=== PATIENT | female | born 1950 | race Two or more races ===

== ENCOUNTER 2017-06-02 12:43 | Inpatient (IN) | payer MEDICAID, MEDICARE ==
[~2017-06-02] VITALS: Ht 152.4 cm; Wt 63.5 kg
[~2017-06-02 12:43] MED LIST: ASPIRIN EC81 MG ORAL; AZITHROMYCIN250 MG ORAL; BENAZEPRIL HCL10 MG ORAL; CALCIUM 500 +1 EAC7 PO; CODEINE-GUAIFE120 ML PO; GABAPENTIN100 MG ORAL; HYDROCHLOROTHIA25 MG ORAL; LOSARTAN POTASS25 M1 PO; METFORMIN HCL1000 M1 ORAL; MONTELUKAST SOD10 MG ORAL; NEURONTIN100 MG ORAL; NITROGLYCERIN0.4 MG SL; NITROSTAT0.4 M1 SL; NOVOLIN 70/305 UNIT1 SUBQ; OMEPRAZOLE40 M1 ORAL; PROAIR HFA8.5 GM INH; SYMBICORT 16010.2 G1 IH
[2017-06-02] MEDS ORDERED: Ketorolac 30mg Inj IV ONE (13:00)
[2017-06-02] MEDS ORDERED: LORazepam Inj 2mg/ml 1ml IV ONE (13:00)
[2017-06-02 13:10] VITALS: BP 136/68
--- NOTE | 2017-06-02 13:34 | Diagnostic Imaging Report ---
Indication: Dyspnea Comparison: 08/28/16 A single view chest radiograph was obtained. Findings: Reticular markings noted at the lung bases, unchanged from the last study. Heart size is normal. The bones are osteopenic. Impression: Suspected mild basilar atelectasis and/or scarring.
[2017-06-02 13:43] LABS: APPEARANCE,URINE SLIGHTLY CLOUDY; KETONES,URINE 2+ (NEGATIVE); LEUKOCYTE ESTERASE ,URINE 1+ (NEGATIVE); NITRITE,URINE NEGATIVE (NEGATIVE); PH,URINE 7 (4.5-8.0); PROTEIN,URINE 1+ (NEGATIVE); UROBILINOGEN,URINE 1 MG/DL (0.0-1.0)
[2017-06-02 13:48] LABS: BACTERIA,URINE FEW /HPF; MUCUS,URINE MODERATE /LPF (NONE/OCC); SQUAMOUS EPITHELIAL CELL,UR FEW /LPF (NONE/OCC)
[2017-06-02 13:49] LABS: ICTOTEST NEGATIVE
[2017-06-02 14:07] LABS: TROPONIN I < 0.30 ng/mL (<=0.30)
--- NOTE | 2017-06-02 14:07 | Emergency Room Report ---
History of Present Illness General Chief Complaint: General Complaint Source: Patient, Family Member, Medical Record (YOVANNY MENDOZA M.D.) Present Illness HPI 66-year-old female presents ED complaining of generalized bodyaches, cough, shortness of breath and abdominal pain. Also having diarrhea for the last 3 days. Patient appears very anxious. Daughter and at that states patient has a history of anxiety and takes Ativan. Patient recently returned from a trip to [place]. Patient states that she has a "lung problem". Denies fevers or chills. Denies chest pain. No other aggravating relieving factors. Denies any other associated symptom (YOVANNY MENDOZA M.D.) Allergies: Coded Allergies: MORPHINE (Unverified Allergy, Severe, HIVES, SWELLING OF FACE, RASH, ) Patient History Past Medical History: DM, HTN, asthma, psych hx Past Surgical History: none Pertinent Family History: none Social History: Denies: smoking, alcohol use, drug use Now: No Immunizations: UTD Reviewed Nursing Documentation: PMH: Agreed, PSxH: Agreed (YOVANNY MENDOZA M.D.) Nursing Documentation-PMH Past Medical History: No History, Except For Hx Hypertension: Yes Hx Asthma: Yes Hx Diabetes: Yes Hx Cancer: No Hx Gastrointestinal Problems: No Hx Neurological Problems: No (YOVANNY MENDOZA M.D.) Review of Systems All Other Systems: negative except mentioned in HPI (YOVANNY MENDOZA M.D.) Physical Exam Vital Signs Date Time Temp Pulse Resp B/P (MAP) Pulse Ox O2 Delivery O2 Flow Rate FiO2 06/02/17 12:48 98.1 78 33 99/70 100 Room Air Sp02 EP Interpretation: reviewed, normal General Appearance: no apparent distress, alert, GCS 15, non-toxic Head: normocephalic, atraumatic Eyes: bilateral eye normal inspection, bilateral eye PERRL ENT: hearing grossly normal, normal pharynx, no angioedema, normal voice Neck: full range of motion, supple/symm/no masses Respiratory: chest non-tender, crackles, speaking full sentences Cardiovascular #1: regular rate, rhythm, no edema Cardiovascular #2: 2+ carotid (R), 2+ carotid (L), 2+ radial (R), 2+ radial (L) , 2+ dorsalis pedis (R), 2+ dorsalis pedis (L) Gastrointestinal: normal bowel sounds, non tender, soft, non-distended, no guarding, no rebound Rectal: deferred Genitourinary: normal inspection, no CVA tenderness Musculoskeletal: back normal, gait/station normal, normal range of motion, non- tender Neurologic: alert, oriented x3, responsive, motor strength/tone normal, sensory intact, speech normal Psychiatric: judgement/insight normal, memory normal, mood/affect normal, no suicidal/homicidal ideation Reflexes: 3+ bicep (R), 3+ bicep (L), 3+ tricep (R), 3+ tricep (L), 3+ knee (R) , 3+ knee (L) Skin: normal color, no rash, warm/dry, well hydrated Lymphatic: no adenopathy (YOVANNY MENDOZA M.D.) Medical Decision Making Diagnostic Impression: Primary Impression: Bronchitis Additional Impressions: Lactic acid acidosis Hyperkalemia ER Course Patient was endorsed to me by Dr. Mendoza. Patient was noted to have elevated lactic acid level. The patient had some improvement after IV hydration. The patient had chest x-ray showed no acute changes. Patient was discussed with Dr. Blanco. See previous note for full history of present illness. The patient will be admitted to the hospital as [facility] was unable to arrange a timely transfer. The patient was subsequently discussed with Dr. killian for inpatient management due to elevated lactic acid level Labs Test 06/02/17 13:21 06/02/17 13:54 06/02/17 14:53 Urine Color Yellow Urine Appearance Slightly cloudy Urine pH 7 (4.5-8.0) Urine Specific [place] 1.015 (1.005-1.035) Urine Protein 1+ (NEGATIVE) Urine Glucose (UA) 3+ (NEGATIVE) Urine Ketones 2+ (NEGATIVE) Urine Occult Blood Negative (NEGATIVE) Urine Nitrite Negative (NEGATIVE) Urine Bilirubin 1+ (NEGATIVE) Urine Ictotest Negative Urine Urobilinogen 1 MG/DL (0.0-1.0) Urine Leukocyte Esterase 1+ (NEGATIVE) Urine RBC 2-4 /HPF (0 - 2) Urine WBC 2-4 /HPF (0 - 2) Urine Squamous Epithelial Cells Few /LPF (NONE/OCC) Urine Bacteria Few /HPF (NONE) Urine Mucus Moderate /LPF (NONE/OCC) Sodium Level 137 mEQ/L (135-145) Potassium Level 5.8 mEQ/L (3.4-4.9) Chloride Level 96 mEQ/L (98-107) Carbon Dioxide Level 21 mEQ/L (20-30) Anion Gap 20 (5-15) Blood Urea Nitrogen 9 mg/dL (7-23) Creatinine 0.8 mg/dL (0.5-0.9) Estimat Glomerular Filtration Rate > 60 mL/min (>60) Glucose Level 241 mg/dL (74-106) Calcium Level 10.3 mg/dL (8.6-10.2) Total Bilirubin 0.3 mg/dL (0.0-1.2) Aspartate Amino Transf (AST/SGOT) 31 U/L (5-40) Alanine Aminotransferase (ALT/SGPT) 16 U/L (3-33) Alkaline Phosphatase 73 U/L (35-104) Total Creatine Kinase 74 U/L (26-140) Creatine Kinase MB < 1.5 ng/mL (< 3.8) Creatine Kinase MB Relative Index 2.0 Troponin I < 0.30 ng/mL (<=0.30) Pro-B-Type Natriuretic Peptide 161 pg/mL (0-125) Total Protein 7.6 g/dL (6.6-8.7) Albumin 4.7 g/dL (3.5-5.2) Globulin 2.9 g/dL Albumin/Globulin Ratio 1.6 (1.0-2.7) White Blood Count 9.5 K/UL (4.8-10.8) Red Blood Count 4.77 M/UL (4.20-5.40) Hemoglobin 13.9 G/DL (12.0-16.0) Hematocrit 40.0 % (37.0-47.0) Mean Corpuscular Volume 84 FL (80-99) Mean Corpuscular Hemoglobin 29.1 PG (27.0-31.0) Mean Corpuscular Hemoglobin Concent 34.7 G/DL (32.0-36.0) Red Cell Distribution Width 11.3 % (11.6-14.8) Platelet Count 233 K/UL (150-450) Mean Platelet Volume 8.2 FL (6.5-10.1) Neutrophils (%) (Auto) 57.5 % (45.0-75.0) Lymphocytes (%) (Auto) 32.5 % (20.0-45.0) Monocytes (%) (Auto) 7.6 % (1.0-10.0) Eosinophils (%) (Auto) 1.6 % (0.0-3.0) Basophils (%) (Auto) 0.8 % (0.0-2.0) Lactic Acid Level 3.80 mmol/L (0.66-2.22) (Buddy Ray) EKG Diagnostic Results Rate: normal Rhythm: NSR ST Segments: no acute changes ASA given to the pt in ED: No (YOVANNY MENDOZA M.D.) Rhythm Strip Diag. Results EP Interpretation: yes Rhythm: NSR, no PVC's, no ectopy (YOVANNY MENDOZA M.D.) Chest X-Ray Diagnostic Results Chest X-Ray Diagnostic Results : Chest X-Ray Ordered: Yes # of Views/Limited/Complete: 1 View Indication: Shortness of Breath EP Interpretation: Yes Interpretation: no pneumothorax, no acute cardiopulmonary disease, other - bilateral atelectasis Impression: Other - atelectasis Electronically Signed by: Electronically signed by Yovanny Mendoza MD (YOVANNY MENDOZA M.D.) Last Vital Signs Date Time Temp Pulse Resp B/P (MAP) Pulse Ox O2 Delivery O2 Flow Rate FiO2 06/02/17 12:48 98.1 78 33 99/70 100 Room Air (YOVANNY MENDOZA M.D.) Status: improved (Buddy Ray) Disposition: HOME, SELF-CARE Condition: Stable Referrals: NON PHYSICIAN (PCP) YOVANNY MENDOZA M.D. Jun 02, 2017 14:07 Buddy Ray Jun 02, 2017 15:56
[2017-06-02 14:09] LABS: ALANINE AMINOTRANSFERASE 16 U/L (3-33); ALBUMIN/GLOBULIN RATIO 1.6 (1.0-2.7); ANION GAP 20 (5-15); ASPARTATE AMINO TRANSFERASE 31 U/L (5-40); CALCIUM 10.3 mg/dL (8.6-10.2); CARBON DIOXIDE 21 mEQ/L (20-30); CHLORIDE 96 mEQ/L (98-107); CREATININE 0.8 mg/dL (0.5-0.9); GLOMERULAR FILTRATION RATE > 60 mL/min (>60); HEMOLYSIS 117; POTASSIUM 5.8 mEQ/L (3.4-4.9); SODIUM 137 mEQ/L (135-145); TOTAL PROTEIN 7.6 g/dL (6.6-8.7)
[2017-06-02 14:13] LABS: REFLEX LACTIC ACID YES OR NO YES
[2017-06-02] MEDS ORDERED: Azithromycin 500 MG in NS 275 ML IV ONE (14:15)
[2017-06-02] MEDS ORDERED: cefTRIAXone 1 GM in NS 55 ML IVPB ONE (14:15)
[2017-06-02 14:20] LABS: CKMB < 1.5 ng/mL (< 3.8)
[2017-06-02 14:25] LABS: BASOPHILS % (AUTO) 0.8 % (0.0-2.0); EOSINOPHILS % (AUTO) 1.6 % (0.0-3.0); LYMPHOCYTES % (AUTO) 32.5 % (20.0-45.0); MEAN CORPUSCULAR HEMOGLOBIN 29.1 PG (27.0-31.0); MEAN CORPUSCULAR HGB CONC 34.7 G/DL (32.0-36.0); MEAN CORPUSCULAR VOLUME 84 FL (80-99); MEAN PLATELET VOLUME 8.2 FL (6.5-10.1); MONOCYTES % (AUTO) 7.6 % (1.0-10.0); NEUTROPHILS % (AUTO) 57.5 % (45.0-75.0); PLATELET COUNT 233 K/UL (150-450); RED BLOOD COUNT 4.77 M/UL (4.20-5.40); RED CELL DISTRIBUTION WIDTH 11.3 % (11.6-14.8); WHITE BLOOD COUNT 9.5 K/UL (4.8-10.8)
[2017-06-02] MEDS ORDERED: DONEPEZIL HCL10 MG ORAL (14:55)
[2017-06-02] MEDS ORDERED: AMITRIPTYLINE100 MG ORAL (14:55)
[2017-06-02] MEDS ORDERED: MELOXICAM7.5 MG PO (14:56)
[2017-06-02] MEDS ORDERED: MONTELUKAST SOD10 MG ORAL (14:59)
[2017-06-02] MEDS ORDERED: LATANOPROST2.5 ML BOTH EYES (14:59)
[2017-06-02] MEDS ORDERED: OYSTERCAL-D 501 EACH PO (14:59)
[2017-06-02] MEDS ORDERED: PAZEO2.5 ML OP (14:59)
[2017-06-02] MEDS ORDERED: ATORVASTATIN CA20 MG ORAL (14:59)
[2017-06-02 15:10] VITALS: BP 178/81
[2017-06-02] MEDS ORDERED: Azithromycin 500mg Inj IV ONE ×2 (15:30→15:42)
[2017-06-02] MEDS ORDERED: D5 1/2NS 1,000 ML IV SCH (16:15)
[2017-06-02 17:10] VITALS: BP 122/74
[2017-06-02] MEDS ORDERED: Acetaminophen 500mg (ES) tab ORAL ONE (17:30)
[2017-06-02] MEDS ORDERED: LORazepam Inj 2mg/ml 1ml IV PRN (18:15)
[2017-06-02] MEDS ORDERED: Albuterol/Ipratropium 3ml neb HHN PRN (18:15)
[2017-06-02] MEDS ORDERED: Miralax 17gm pkt ORAL PRN (18:15)
[2017-06-02 19:51] VITALS: BP 115/74
[2017-06-02] MEDS ORDERED: Cefepime HCl 2 GM in D5W 110 ML IV SCH (21:30)
[2017-06-02] MEDS: Heparin 5000 units/ml inj SUBQ SCH (22:21)
[2017-06-02] MEDS: NovoLOG Insulin Flexpen SUBQ SCH (22:34)
[2017-06-02] MEDS: Vancomycin 1 GM in D5W 275 ML IVPB SCH (23:55)
[2017-06-03 00:22] VITALS: BP 103/56
[2017-06-03 04:25] VITALS: BP 107/58
[2017-06-03] MEDS: NovoLOG Insulin Flexpen SUBQ SCH ×4 (06:12→21:44)
[2017-06-03] MEDS ORDERED: Norco 5mg/325mg tab ORAL PRN (07:15)
[2017-06-03 08:08] VITALS: BP 121/76
[2017-06-03 08:22] LABS: BASOPHILS % (AUTO) 1.5 % (0.0-2.0); EOSINOPHILS % (AUTO) 4.7 % (0.0-3.0); LYMPHOCYTES % (AUTO) 36.9 % (20.0-45.0); MEAN CORPUSCULAR HEMOGLOBIN 27.7 PG (27.0-31.0); MEAN CORPUSCULAR HGB CONC 31.3 G/DL (32.0-36.0); MEAN CORPUSCULAR VOLUME 88 FL (80-99); MEAN PLATELET VOLUME 7.2 FL (6.5-10.1); MONOCYTES % (AUTO) 9.3 % (1.0-10.0); NEUTROPHILS % (AUTO) 47.7 % (45.0-75.0); PLATELET COUNT 177 K/UL (150-450); RED BLOOD COUNT 4.25 M/UL (4.20-5.40); RED CELL DISTRIBUTION WIDTH 11.6 % (11.6-14.8); WHITE BLOOD COUNT 6.4 K/UL (4.8-10.8)
[2017-06-03 08:46] LABS: ANION GAP 12 (5-15); CALCIUM 9.1 mg/dL (8.6-10.2); CARBON DIOXIDE 21 mEQ/L (20-30); CHLORIDE 111 mEQ/L (98-107); CREATININE 0.6 mg/dL (0.5-0.9); GLOMERULAR FILTRATION RATE > 60 mL/min (>60); HEMOLYSIS 4; PHOSPHORUS 3.8 mg/dL (2.5-4.8); POTASSIUM 4.6 mEQ/L (3.4-4.9); SODIUM 144 mEQ/L (135-145)
[2017-06-03] MEDS: Heparin 5000 units/ml inj SUBQ SCH ×2 (09:11→21:46)
[2017-06-03] MEDS: Vancomycin 1 GM in D5W 275 ML IVPB SCH (09:18)
--- NOTE | 2017-06-03 09:38 | Consultation ---
History of Present Illness General Date patient seen: Jun 03, 2017 Time patient seen: 09:37 Chief Complaint: General Complaint Present Illness HPI 66 y/o F with hx of DM2, Asthma/bronchitis, Anxiety presents to ED on 06/02 with generalized body aches, productive cough of white phlegm, SOB, abd pain and diarrhea onset about 4 days prior to admission. Patient complains of chronic cough and abd pain. Diarrhea resolved, now contispated in the for the last 4 days. Denied f/c, n/v, dysuria, WATTS, rash. OF note, patient returned recently from [place]. Afebrile, no leukocytosis, CXR with basilar atelectasis. Flu neg. Started on IV Vanco and Cefpime Allergies: Coded Allergies: MORPHINE (Unverified Allergy, Severe, HIVES, SWELLING OF FACE, RASH, ) AZITHROMYCIN (Verified Allergy, Unknown, Burning, 06/02/17) Medication History Scheduled Amitriptyline HCl (Amitriptyline HCl), 10 MG ORAL BEDTIME, (Reported) Aspirin Ec* (Aspirin Ec*), 81 MG ORAL DAILY, (Reported) Atorvastatin Calcium* (Atorvastatin Calcium*), 20 MG ORAL BEDTIME, (Reported) Donepezil Hcl* (Donepezil Hcl*), 10 MG ORAL BEDTIME, (Reported) Gabapentin* (Neurontin*), 100 MG ORAL THREE TIMES A DAY, (Reported) Hydrochlorothiazide* (Hydrochlorothiazide*), 25 MG ORAL DAILY, (Reported) Insulin Human Isophan/Regular (Humulin 70-30 Vial), 40 UNITS SUBQ BEFORE BREAKFAST, (Reported) Insulin Human Isophan/Regular (Humulin 70-30 Vial), 25 UNITS SUBQ BEFORE DINNER, (Reported) Latanoprost* (Xalatan*), 1 DROP BOTH EYES BEDTIME, (Reported) Meloxicam* (Meloxicam*), 7.5 MG PO DAILY, (Reported) Metformin Hcl* (Metformin Hcl*), 1,000 MG ORAL BID, (Reported) Montelukast Sodium* (Montelukast Sodium*), 10 MG ORAL DAILY, (Reported) Omeprazole (Omeprazole), 40 MG ORAL DAILY, (Reported) Miscellaneous Medications Insulin Human Isophan/Regular (Humulin 70-30 Vial), 100 UNITS SUBQ, (Reported) Nitroglycerin (Nitrostat), 0.4 MG SL, (Reported) Olopatadine HCl (Pazeo), 2.5 ML OP, (Reported) Discontinued Medications Albuterol Sulfate* (Proair Hfa*), 2 PUFFS INH Q6H, (Reported) Discontinued Reason: Pt stopped taking med Azithromycin* (Zithromax*), 250 MG ORAL DAILY Discontinued Reason: Pt stopped taking med Benazepril Hcl* (Benazepril Hcl*), 5 MG ORAL DAILY, (Reported) Discontinued Reason: Pt stopped taking med Budesonide/Formoterol Fumarate (Symbicort 160-4.5 Mcg Inhaler), 1 PUFF IH, ( Reported) Discontinued Reason: Pt stopped taking med Calcium Carbonate/Vitamin D3 (Calcium 500 + Vit D3 400 Tab), 1 EACH PO, ( Reported) Discontinued Reason: Pt stopped taking med Calcium Carbonate/Vitamin D3 (Oystercal-D 500 mg-400 Unit Tb), 1 EACH PO DAILY, (Reported) Discontinued Reason: Pt stopped taking med Gabapentin* (Gabapentin*), 100 MG ORAL DAILY, (Reported) Discontinued Reason: Pt stopped taking med Guaifenesin/Codeine Phosphate (Codeine-Guaifen 10-100 mg/5 ml), 5 ML PO TID, ( Reported) Discontinued Reason: Pt stopped taking med Losartan Potassium (Losartan Potassium), 25 MG PO, (Reported) Discontinued Reason: Pt stopped taking med Patient History Healthcare decision maker Resuscitation status Full Code Advanced Directive on File Patient History Narrative PMHx as above Family hx- non pertientn from ID SHx: Denies: smoking, alcohol use, drug use Past Medical/Surgical History Past Medical/Surgical History: (1) ACS (acute coronary syndrome) (2) ACS (acute coronary syndrome) (3) Asthma (4) Hyperglycemia (5) Diabetes mellitus (6) Lactic acid acidosis (7) Bronchitis (8) Pneumonia (9) Hyperkalemia Review of Systems ROS Narrative As per hPI,ohterwise negative. Physical Exam Physical Exam Narrative General Appearance: no apparent distress, alert, non-toxic HEENT: Head: normocephalic, atraumatic, PERRL, no oral lesions Neck: full range of motion, supple/symm/no masses Respiratory: chest non-tender, crackles, Cardiovascular : regular rate, rhythm, no edema (L) Gastrointestinal: normal bowel sounds, non tender, soft, non-distended, no guarding, no rebound Musculoskeletal: back normal, gait/station normal, normal range of motion, non- tender Neurologic: alert, oriented x3, responsive, motor strength/tone normal, sensory intact, speech normal Psychiatric: judgement/insight normal, memory normal, mood/affect normal, no suicidal/homicidal ideation Skin: normal color, no rash, warm/dry, well hydrated Last 24 Hour Vital Signs Date Time Temp Pulse Resp B/P (MAP) Pulse Ox O2 Delivery O2 Flow Rate FiO2 06/03/17 08:08 98.1 71 18 121/76 100 Room Air 06/03/17 04:25 98.0 60 20 107/58 98 Room Air 06/03/17 04:00 64 06/03/17 00:22 97.2 82 20 103/56 96 06/03/17 00:00 78 06/02/17 19:57 98.0 74 30 115/74 100 Room Air 06/02/17 19:51 98.0 74 30 115/74 100 Room Air 06/02/17 17:10 70 30 122/74 100 Room Air 06/02/17 15:10 61 30 178/81 100 Room Air 06/02/17 13:10 98.0 76 20 136/68 100 Room Air 06/02/17 12:48 98.1 78 33 99/70 100 Room Air Intake and Output 06/03/17 06/04/17 19:00 07:00 Intake Total 250 ml Balance 250 ml Intake Oral 250 ml Laboratory Tests Test 06/02/17 13:21 06/02/17 13:54 06/02/17 14:53 06/03/17 07:35 Urine Color Yellow Urine Appearance Slightly cloudy Urine pH 7 (4.5-8.0) Urine Specific [place] 1.015 (1.005-1.035) Urine Protein 1+ (NEGATIVE) H Urine Glucose (UA) 3+ (NEGATIVE) H Urine Ketones 2+ (NEGATIVE) H Urine Occult Blood Negative (NEGATIVE) Urine Nitrite Negative (NEGATIVE) Urine Bilirubin 1+ (NEGATIVE) H Urine Ictotest Negative Urine Urobilinogen 1 MG/DL (0.0-1.0) H Urine Leukocyte Esterase 1+ (NEGATIVE) H Urine RBC 2-4 /HPF (0 - 2) H Urine WBC 2-4 /HPF (0 - 2) Urine Squamous Epithelial Cells Few /LPF (NONE/OCC) Urine Bacteria Few /HPF (NONE) Urine Mucus Moderate /LPF (NONE/OCC) H Sodium Level 137 mEQ/L (135-145) 144 mEQ/L (135-145) Potassium Level 5.8 mEQ/L (3.4-4.9) H 4.6 mEQ/L (3.4-4.9) Chloride Level 96 mEQ/L (98-107) L 111 mEQ/L (98-107) H Carbon Dioxide Level 21 mEQ/L (20-30) 21 mEQ/L (20-30) Anion Gap 20 (5-15) H 12 (5-15) Blood Urea Nitrogen 9 mg/dL (7-23) 7 mg/dL (7-23) Creatinine 0.8 mg/dL (0.5-0.9) 0.6 mg/dL (0.5-0.9) Estimat Glomerular Filtration Rate > 60 mL/min (>60) > 60 mL/min (>60) Glucose Level 241 mg/dL (74-106) H 212 mg/dL (74-106) H Lactic Acid Level 6.10 mmol/L (0.66-2.22) H 3.80 mmol/L (0.66-2.22) H Calcium Level 10.3 mg/dL (8.6-10.2) H 9.1 mg/dL (8.6-10.2) Total Bilirubin 0.3 mg/dL (0.0-1.2) Aspartate Amino Transf (AST/SGOT) 31 U/L (5-40) Alanine Aminotransferase (ALT/SGPT) 16 U/L (3-33) Alkaline Phosphatase 73 U/L (35-104) Total Creatine Kinase 74 U/L (26-140) Creatine Kinase MB < 1.5 ng/mL (< 3.8) Creatine Kinase MB Relative Index 2.0 Troponin I < 0.30 ng/mL (<=0.30) Pro-B-Type Natriuretic Peptide 161 pg/mL (0-125) H Total Protein 7.6 g/dL (6.6-8.7) Albumin 4.7 g/dL (3.5-5.2) 3.4 g/dL (3.5-5.2) L Globulin 2.9 g/dL Albumin/Globulin Ratio 1.6 (1.0-2.7) White Blood Count 9.5 K/UL (4.8-10.8) 6.4 K/UL (4.8-10.8) Red Blood Count 4.77 M/UL (4.20-5.40) 4.25 M/UL (4.20-5.40) Hemoglobin 13.9 G/DL (12.0-16.0) 11.8 G/DL (12.0-16.0) L Hematocrit 40.0 % (37.0-47.0) 37.5 % (37.0-47.0) Mean Corpuscular Volume 84 FL (80-99) 88 FL (80-99) Mean Corpuscular Hemoglobin 29.1 PG (27.0-31.0) 27.7 PG (27.0-31.0) Mean Corpuscular Hemoglobin Concent 34.7 G/DL (32.0-36.0) 31.3 G/DL (32.0-36.0) L Red Cell Distribution Width 11.3 % (11.6-14.8) L 11.6 % (11.6-14.8) Platelet Count 233 K/UL (150-450) 177 K/UL (150-450) Mean Platelet Volume 8.2 FL (6.5-10.1) 7.2 FL (6.5-10.1) Neutrophils (%) (Auto) 57.5 % (45.0-75.0) 47.7 % (45.0-75.0) Lymphocytes (%) (Auto) 32.5 % (20.0-45.0) 36.9 % (20.0-45.0) Monocytes (%) (Auto) 7.6 % (1.0-10.0) 9.3 % (1.0-10.0) Eosinophils (%) (Auto) 1.6 % (0.0-3.0) 4.7 % (0.0-3.0) H Basophils (%) (Auto) 0.8 % (0.0-2.0) 1.5 % (0.0-2.0) Phosphorus Level 3.8 mg/dL (2.5-4.8) Microbiology Date/Time Source Procedure Growth Status 06/03/17 01:38 Nasal Nares Influenza Types A,B Antigen (JOHAN) - Final Complete Height (Feet): 5 Height (Inches): 0.00 Weight (Pounds): 140 Medications Current Medications Medications (Trade) Dose Ordered Sig/Chasidy Route PRN Reason Start Time Stop Time Status Last Admin Dose Admin Acetaminophen (Tylenol) 650 mg Q4H PRN ORAL FEVER 06/02/17 18:15 07/02/17 18:14 06/03/17 00:25 Acetaminophen/ Hydrocodone Bitart ([place] 5/325) 1 tab Q6H PRN ORAL For Pain 06/03/17 07:15 06/10/17 07:14 UNV Albuterol/ Ipratropium (DuoNeb 0.5-3(2.5)mg/3ml) 3 ml Q4H PRN HHN Shortness of Breath 06/02/17 18:15 06/07/17 18:14 Amitriptyline HCl (Elavil) 10 mg BEDTIME ORAL 06/02/17 21:00 07/02/17 20:59 06/02/17 22:05 Cefepime HCl 2 gm/ Dextrose 110 ml @ 220 mls/hr Q24H IV 06/02/17 21:30 06/09/17 21:29 06/02/17 22:35 Dextrose (Dextrose 50%) STAT PRN IV Hypoglycemia 06/02/17 18:15 07/02/17 18:14 Gabapentin (Neurontin) 100 mg THREE TIMES A DAY ORAL 06/03/17 21:00 07/03/17 20:59 Heparin Sodium (Porcine) (Heparin 5000 units/ml) 5,000 units EVERY 12 HOURS SUBQ 06/02/17 21:00 07/02/17 20:59 06/03/17 09:11 Insulin Aspart (NovoLOG) BEFORE MEALS AND HS SUBQ 06/02/17 21:00 07/02/17 20:59 06/03/17 06:12 Lorazepam (Ativan 2mg/ml 1ml) 2 mg Q2H PRN IV For Anxiety 06/02/17 18:15 06/09/17 18:14 Ondansetron HCl (Zofran) 4 mg Q6H PRN IVP Nausea & Vomiting 06/02/17 18:15 07/02/17 18:14 Polyethylene Glycol (Miralax) 17 gm DAILYPRN PRN ORAL Constipation 06/02/17 18:15 07/02/17 18:14 Sodium Chloride 1,000 ml @ 50 mls/hr Q20H IV 06/02/17 21:00 07/02/17 20:59 06/02/17 22:35 Vancomycin HCl (Vanco rx to dose) 1 ea DAILY PRN MISC Per rx protocol 06/02/17 20:45 07/02/17 20:44 Vancomycin HCl 1 gm/Dextrose 275 ml @ 183.3 mls/ hr Q12HR IVPB 06/02/17 22:30 06/07/17 22:29 06/03/17 09:18 Assessment/Plan Assessment/Plan Abx: IV Vanco/Cefepime 06/02- Assesment: SOB/Cough- suspect bronchitis- possibly viral infection exacerbated symptoms -CXR: Suspected mild basilar atelectasis and/or scarring. Diarrhea, now constipated Lactic acidosis, improving Afebrile, no leukocytosis Dm2 Asthma/bronchitis Plan: -Transition above abx to Doxycycline 100mg PO bid for 4 more days in the setting of bronchitis (allergic to azithromycin) -KUB given abd pain and constipation -low treshold for CT abd/p if worsening abd pain and lactic acidosis -f/u cx -monitor CCBC/BMP, temperatures Thank you for this consultation. WIll continue to follow along with you. Discussed with Karo Shaw M.D. Jun 03, 2017 09:38
[2017-06-03 11:52] VITALS: BP 133/67
[2017-06-03] MEDS ORDERED: Promethazine Plain 6.25mg/5ml ORAL PRN (12:00)
--- NOTE | 2017-06-03 13:18 | History and Physical ---
History of Present Illness General Date patient seen: Jun 02, 2017 Reason for Hospitalization: General Complaint Present Illness HPI 66-year-old female with hx of Asthma. DM presented [facility] complaining of generalized cough, shortness of breath and abdominal pain. Also having diarrhea for the last 3 days. Patient appears very anxious. Denies fevers or chills. Denies chest pain. No other aggravating relieving factors. Denies any other associated symptom. she is admitted to telemetry for further evaluation. Allergies: Coded Allergies: MORPHINE (Unverified Allergy, Severe, HIVES, SWELLING OF FACE, RASH, ) AZITHROMYCIN (Verified Allergy, Unknown, Burning, 06/02/17) Medication History Scheduled Amitriptyline HCl (Amitriptyline HCl), 10 MG ORAL BEDTIME, (Reported) Aspirin Ec* (Aspirin Ec*), 81 MG ORAL DAILY, (Reported) Atorvastatin Calcium* (Atorvastatin Calcium*), 20 MG ORAL BEDTIME, (Reported) Donepezil Hcl* (Donepezil Hcl*), 10 MG ORAL BEDTIME, (Reported) Gabapentin* (Neurontin*), 100 MG ORAL THREE TIMES A DAY, (Reported) Hydrochlorothiazide* (Hydrochlorothiazide*), 25 MG ORAL DAILY, (Reported) Insulin Human Isophan/Regular (Humulin 70-30 Vial), 40 UNITS SUBQ BEFORE BREAKFAST, (Reported) Insulin Human Isophan/Regular (Humulin 70-30 Vial), 25 UNITS SUBQ BEFORE DINNER, (Reported) Latanoprost* (Xalatan*), 1 DROP BOTH EYES BEDTIME, (Reported) Meloxicam* (Meloxicam*), 7.5 MG PO DAILY, (Reported) Metformin Hcl* (Metformin Hcl*), 1,000 MG ORAL BID, (Reported) Montelukast Sodium* (Montelukast Sodium*), 10 MG ORAL DAILY, (Reported) Omeprazole (Omeprazole), 40 MG ORAL DAILY, (Reported) Miscellaneous Medications Insulin Human Isophan/Regular (Humulin 70-30 Vial), 100 UNITS SUBQ, (Reported) Nitroglycerin (Nitrostat), 0.4 MG SL, (Reported) Olopatadine HCl (Pazeo), 2.5 ML OP, (Reported) Discontinued Medications Albuterol Sulfate* (Proair Hfa*), 2 PUFFS INH Q6H, (Reported) Discontinued Reason: Pt stopped taking med Azithromycin* (Zithromax*), 250 MG ORAL DAILY Discontinued Reason: Pt stopped taking med Benazepril Hcl* (Benazepril Hcl*), 5 MG ORAL DAILY, (Reported) Discontinued Reason: Pt stopped taking med Budesonide/Formoterol Fumarate (Symbicort 160-4.5 Mcg Inhaler), 1 PUFF IH, ( Reported) Discontinued Reason: Pt stopped taking med Calcium Carbonate/Vitamin D3 (Calcium 500 + Vit D3 400 Tab), 1 EACH PO, ( Reported) Discontinued Reason: Pt stopped taking med Calcium Carbonate/Vitamin D3 (Oystercal-D 500 mg-400 Unit Tb), 1 EACH PO DAILY, (Reported) Discontinued Reason: Pt stopped taking med Gabapentin* (Gabapentin*), 100 MG ORAL DAILY, (Reported) Discontinued Reason: Pt stopped taking med Guaifenesin/Codeine Phosphate (Codeine-Guaifen 10-100 mg/5 ml), 5 ML PO TID, ( Reported) Discontinued Reason: Pt stopped taking med Losartan Potassium (Losartan Potassium), 25 MG PO, (Reported) Discontinued Reason: Pt stopped taking med Patient History Healthcare decision maker Resuscitation status Full Code Advanced Directive on File Past Medical/Surgical History Past Medical/Surgical History: (1) Asthma (2) Diabetes mellitus Review of Systems All Other Systems: negative except mentioned in HPI Physical Exam General Appearance: WD/WN Lines, tubes and drains: peripheral HEENT: normocephalic, atraumatic Neck: non-tender, normal alignment Respiratory/Chest: chest wall non-tender, lungs clear Breasts: no masses Cardiovascular/Chest: normal peripheral pulses, normal rate, regular rhythm Abdomen: normal bowel sounds, non tender Genitourinary/Rectal: normal genital exam Extremities: normal range of motion Skin Exam: normal pigmentation Lymphatic: anterior cervical Last 24 Hour Vital Signs Date Time Temp Pulse Resp B/P (MAP) Pulse Ox O2 Delivery O2 Flow Rate FiO2 06/03/17 11:52 98.3 67 18 133/67 100 Room Air 06/03/17 08:25 69 18 Room Air 06/03/17 08:08 98.1 71 18 121/76 100 Room Air 06/03/17 08:00 71 06/03/17 04:25 98.0 60 20 107/58 98 Room Air 06/03/17 04:00 64 06/03/17 00:22 97.2 82 20 103/56 96 06/03/17 00:00 78 06/02/17 19:57 98.0 74 30 115/74 100 Room Air 06/02/17 19:51 98.0 74 30 115/74 100 Room Air 06/02/17 17:10 70 30 122/74 100 Room Air 06/02/17 15:10 61 30 178/81 100 Room Air Intake and Output 06/03/17 06/04/17 19:00 07:00 Intake Total 250 ml Output Total 300 ml Balance -50 ml Intake Oral 250 ml Output Urine Total 300 ml # Bowel Movements 1 Laboratory Tests Test 06/02/17 13:21 06/02/17 13:54 06/02/17 14:53 06/03/17 07:35 Urine Color Yellow Urine Appearance Slightly cloudy Urine pH 7 (4.5-8.0) Urine Specific [place] 1.015 (1.005-1.035) Urine Protein 1+ (NEGATIVE) H Urine Glucose (UA) 3+ (NEGATIVE) H Urine Ketones 2+ (NEGATIVE) H Urine Occult Blood Negative (NEGATIVE) Urine Nitrite Negative (NEGATIVE) Urine Bilirubin 1+ (NEGATIVE) H Urine Ictotest Negative Urine Urobilinogen 1 MG/DL (0.0-1.0) H Urine Leukocyte Esterase 1+ (NEGATIVE) H Urine RBC 2-4 /HPF (0 - 2) H Urine WBC 2-4 /HPF (0 - 2) Urine Squamous Epithelial Cells Few /LPF (NONE/OCC) Urine Bacteria Few /HPF (NONE) Urine Mucus Moderate /LPF (NONE/OCC) H Sodium Level 137 mEQ/L (135-145) 144 mEQ/L (135-145) Potassium Level 5.8 mEQ/L (3.4-4.9) H 4.6 mEQ/L (3.4-4.9) Chloride Level 96 mEQ/L (98-107) L 111 mEQ/L (98-107) H Carbon Dioxide Level 21 mEQ/L (20-30) 21 mEQ/L (20-30) Anion Gap 20 (5-15) H 12 (5-15) Blood Urea Nitrogen 9 mg/dL (7-23) 7 mg/dL (7-23) Creatinine 0.8 mg/dL (0.5-0.9) 0.6 mg/dL (0.5-0.9) Estimat Glomerular Filtration Rate > 60 mL/min (>60) > 60 mL/min (>60) Glucose Level 241 mg/dL (74-106) H 212 mg/dL (74-106) H Lactic Acid Level 6.10 mmol/L (0.66-2.22) H 3.80 mmol/L (0.66-2.22) H Calcium Level 10.3 mg/dL (8.6-10.2) H 9.1 mg/dL (8.6-10.2) Total Bilirubin 0.3 mg/dL (0.0-1.2) Aspartate Amino Transf (AST/SGOT) 31 U/L (5-40) Alanine Aminotransferase (ALT/SGPT) 16 U/L (3-33) Alkaline Phosphatase 73 U/L (35-104) Total Creatine Kinase 74 U/L (26-140) Creatine Kinase MB < 1.5 ng/mL (< 3.8) Creatine Kinase MB Relative Index 2.0 Troponin I < 0.30 ng/mL (<=0.30) Pro-B-Type Natriuretic Peptide 161 pg/mL (0-125) H Total Protein 7.6 g/dL (6.6-8.7) Albumin 4.7 g/dL (3.5-5.2) 3.4 g/dL (3.5-5.2) L Globulin 2.9 g/dL Albumin/Globulin Ratio 1.6 (1.0-2.7) White Blood Count 9.5 K/UL (4.8-10.8) 6.4 K/UL (4.8-10.8) Red Blood Count 4.77 M/UL (4.20-5.40) 4.25 M/UL (4.20-5.40) Hemoglobin 13.9 G/DL (12.0-16.0) 11.8 G/DL (12.0-16.0) L Hematocrit 40.0 % (37.0-47.0) 37.5 % (37.0-47.0) Mean Corpuscular Volume 84 FL (80-99) 88 FL (80-99) Mean Corpuscular Hemoglobin 29.1 PG (27.0-31.0) 27.7 PG (27.0-31.0) Mean Corpuscular Hemoglobin Concent 34.7 G/DL (32.0-36.0) 31.3 G/DL (32.0-36.0) L Red Cell Distribution Width 11.3 % (11.6-14.8) L 11.6 % (11.6-14.8) Platelet Count 233 K/UL (150-450) 177 K/UL (150-450) Mean Platelet Volume 8.2 FL (6.5-10.1) 7.2 FL (6.5-10.1) Neutrophils (%) (Auto) 57.5 % (45.0-75.0) 47.7 % (45.0-75.0) Lymphocytes (%) (Auto) 32.5 % (20.0-45.0) 36.9 % (20.0-45.0) Monocytes (%) (Auto) 7.6 % (1.0-10.0) 9.3 % (1.0-10.0) Eosinophils (%) (Auto) 1.6 % (0.0-3.0) 4.7 % (0.0-3.0) H Basophils (%) (Auto) 0.8 % (0.0-2.0) 1.5 % (0.0-2.0) Phosphorus Level 3.8 mg/dL (2.5-4.8) Test 06/03/17 10:10 Lactic Acid Level 1.30 mmol/L (0.66-2.22) Microbiology Date/Time Source Procedure Growth Status 06/03/17 01:38 Nasal Nares Influenza Types A,B Antigen (JOHAN) - Final Complete Height (Feet): 5 Height (Inches): 0.00 Weight (Pounds): 140 Medications Current Medications Medications (Trade) Dose Ordered Sig/Chasidy Route PRN Reason Start Time Stop Time Status Last Admin Dose Admin Acetaminophen (Tylenol) 650 mg Q4H PRN ORAL FEVER 06/02/17 18:15 07/02/17 18:14 06/03/17 00:25 Albuterol/ Ipratropium (DuoNeb 0.5-3(2.5)mg/3ml) 3 ml Q4H PRN HHN Shortness of Breath 06/02/17 18:15 06/07/17 18:14 Amitriptyline HCl (Elavil) 10 mg BEDTIME ORAL 06/02/17 21:00 07/02/17 20:59 06/02/17 22:05 Dextrose (Dextrose 50%) STAT PRN IV Hypoglycemia 06/02/17 18:15 07/02/17 18:14 Gabapentin (Neurontin) 100 mg THREE TIMES A DAY ORAL 06/03/17 21:00 07/03/17 20:59 Heparin Sodium (Porcine) (Heparin 5000 units/ml) 5,000 units EVERY 12 HOURS SUBQ 06/02/17 21:00 07/02/17 20:59 06/03/17 09:11 Insulin Aspart (NovoLOG) BEFORE MEALS AND HS SUBQ 06/02/17 21:00 07/02/17 20:59 06/03/17 11:30 Lorazepam (Ativan 2mg/ml 1ml) 2 mg Q2H PRN IV For Anxiety 06/02/17 18:15 06/09/17 18:14 Ondansetron HCl (Zofran) 4 mg Q6H PRN IVP Nausea & Vomiting 06/02/17 18:15 07/02/17 18:14 Polyethylene Glycol (Miralax) 17 gm DAILYPRN PRN ORAL Constipation 06/02/17 18:15 07/02/17 18:14 06/03/17 13:06 Promethazine HCl (Phenergan Plain) 6.25 mg Q6H PRN ORAL For Cough 06/03/17 12:00 07/03/17 11:59 Sodium Chloride 1,000 ml @ 50 mls/hr Q20H IV 06/02/17 21:00 07/02/17 20:59 06/02/17 22:35 Assessment/Plan Problem List: (1) Purulent bronchitis ICD Codes: J41.1 - Mucopurulent chronic bronchitis SNOMED: 37488805 (2) Asthma ICD Codes: J45.909 - Asthma SNOMED: 001286212 (3) History of coronary artery stent placement ICD Codes: Z95.5 - History of coronary artery stent placement SNOMED: 413435330 (4) Diabetes mellitus ICD Codes: E11.9 - Diabetes mellitus SNOMED: 97370712 Assessment/Plan respiratory treatment check sputum antitussives symptomatic treatment IV abx ZARRABI,MIRALI Jun 03, 2017 13:18
--- NOTE | 2017-06-03 13:31 | Pulmonology Progress Note ---
Assessment/Plan Problems: (1) Purulent bronchitis (2) Asthma (3) History of coronary artery stent placement (4) Diabetes mellitus Assessment/Plan respiratory treatment Iv abx check echo check sputum Subjective ROS Limited/Unobtainable: No Constitutional: Reports: no symptoms HEENT: Repors: no symptoms Respiratory: Reports: no symptoms Allergies: Coded Allergies: MORPHINE (Unverified Allergy, Severe, HIVES, SWELLING OF FACE, RASH, ) AZITHROMYCIN (Verified Allergy, Unknown, Burning, 06/02/17) Objective Last 24 Hour Vital Signs Date Time Temp Pulse Resp B/P (MAP) Pulse Ox O2 Delivery O2 Flow Rate FiO2 06/03/17 11:52 98.3 67 18 133/67 100 Room Air 06/03/17 08:25 69 18 Room Air 06/03/17 08:08 98.1 71 18 121/76 100 Room Air 06/03/17 08:00 71 06/03/17 04:25 98.0 60 20 107/58 98 Room Air 06/03/17 04:00 64 06/03/17 00:22 97.2 82 20 103/56 96 06/03/17 00:00 78 06/02/17 19:57 98.0 74 30 115/74 100 Room Air 06/02/17 19:51 98.0 74 30 115/74 100 Room Air 06/02/17 17:10 70 30 122/74 100 Room Air 06/02/17 15:10 61 30 178/81 100 Room Air Intake and Output 06/03/17 06/04/17 19:00 07:00 Intake Total 250 ml Output Total 300 ml Balance -50 ml Intake Oral 250 ml Output Urine Total 300 ml # Bowel Movements 1 General Appearance: WD/WN HEENT: normocephalic Respiratory/Chest: chest wall non-tender, lungs clear Cardiovascular: normal peripheral pulses, normal rate Abdomen: normal bowel sounds, soft, non tender Genitourinary: normal external genitalia Extremities: no cyanosis Skin: no rash Microbiology Date/Time Source Procedure Growth Status 06/03/17 01:38 Nasal Nares Influenza Types A,B Antigen (JOHAN) - Final Complete Laboratory Tests 06/02/17 13:21: Urine Color Yellow, Urine Appearance Slightly cloudy, Urine pH 7, Urine Specific [place] 1.015, Urine Protein 1+H, Urine Glucose (UA) 3+H, Urine Ketones 2+H, Urine Occult Blood Negative, Urine Nitrite Negative, Urine Bilirubin 1+H, Urine Ictotest Negative, Urine Urobilinogen 1H, Urine Leukocyte Esterase 1+H, Urine RBC 2-4H, Urine WBC 2-4, Urine Squamous Epithelial Cells Few , Urine Bacteria Few, Urine Mucus ModerateH, Sodium Level 137, Potassium Level 5.8H, Chloride Level 96L, Carbon Dioxide Level 21, Anion Gap 20H, Blood Urea Nitrogen 9, Creatinine 0.8, Estimat Glomerular Filtration Rate > 60, Glucose Level 241H, Lactic Acid Level 6.10H, Calcium Level 10.3H, Total Bilirubin 0.3, Aspartate Amino Transf (AST/SGOT) 31, Alanine Aminotransferase (ALT/SGPT) 16, Alkaline Phosphatase 73, Total Creatine Kinase 74, Creatine Kinase MB < 1.5, Creatine Kinase MB Relative Index 2.0, Troponin I < 0.30, Pro-B-Type Natriuretic Peptide 161H, Total Protein 7.6, Albumin 4.7, Globulin 2.9, Albumin/ Globulin Ratio 1.6 06/02/17 13:54: White Blood Count 9.5, Red Blood Count 4.77, Hemoglobin 13.9, Hematocrit 40.0, Mean Corpuscular Volume 84, Mean Corpuscular Hemoglobin 29.1, Mean Corpuscular Hemoglobin Concent 34.7, Red Cell Distribution Width 11.3L, Platelet Count 233, Mean Platelet Volume 8.2, Neutrophils (%) (Auto) 57.5, Lymphocytes (%) (Auto) 32.5, Monocytes (%) (Auto) 7.6, Eosinophils (%) (Auto) 1.6, Basophils (%) (Auto ) 0.8 06/02/17 14:53: Lactic Acid Level 3.80H 06/03/17 07:35: Sodium Level 144, Potassium Level 4.6, Chloride Level 111H, Carbon Dioxide Level 21, Anion Gap 12, Blood Urea Nitrogen 7, Creatinine 0.6, Estimat Glomerular Filtration Rate > 60, Glucose Level 212H, Calcium Level 9.1, Albumin 3.4L, White Blood Count 6.4, Red Blood Count 4.25, Hemoglobin 11.8L, Hematocrit 37.5, Mean Corpuscular Volume 88, Mean Corpuscular Hemoglobin 27.7, Mean Corpuscular Hemoglobin Concent 31.3L, Red Cell Distribution Width 11.6, Platelet Count 177, Mean Platelet Volume 7.2, Neutrophils (%) (Auto) 47.7, Lymphocytes (%) (Auto) 36.9, Monocytes (%) (Auto) 9.3, Eosinophils (%) (Auto) 4.7H, Basophils (%) (Auto) 1.5, Phosphorus Level 3.8 06/03/17 10:10: Lactic Acid Level 1.30 Current Medications Medications (Trade) Dose Ordered Sig/Chasidy Route PRN Reason Start Time Stop Time Status Last Admin Dose Admin Acetaminophen (Tylenol) 650 mg Q4H PRN ORAL FEVER 06/02/17 18:15 07/02/17 18:14 06/03/17 00:25 Albuterol/ Ipratropium (DuoNeb 0.5-3(2.5)mg/3ml) 3 ml Q4H PRN HHN Shortness of Breath 06/02/17 18:15 06/07/17 18:14 Amitriptyline HCl (Elavil) 10 mg BEDTIME ORAL 06/02/17 21:00 07/02/17 20:59 06/02/17 22:05 Dextrose (Dextrose 50%) STAT PRN IV Hypoglycemia 06/02/17 18:15 07/02/17 18:14 Gabapentin (Neurontin) 100 mg THREE TIMES A DAY ORAL 06/03/17 21:00 07/03/17 20:59 Heparin Sodium (Porcine) (Heparin 5000 units/ml) 5,000 units EVERY 12 HOURS SUBQ 06/02/17 21:00 07/02/17 20:59 06/03/17 09:11 Insulin Aspart (NovoLOG) BEFORE MEALS AND HS SUBQ 06/02/17 21:00 07/02/17 20:59 06/03/17 11:30 Lorazepam (Ativan 2mg/ml 1ml) 2 mg Q2H PRN IV For Anxiety 06/02/17 18:15 06/09/17 18:14 Ondansetron HCl (Zofran) 4 mg Q6H PRN IVP Nausea & Vomiting 06/02/17 18:15 07/02/17 18:14 Polyethylene Glycol (Miralax) 17 gm DAILYPRN PRN ORAL Constipation 06/02/17 18:15 11/3/17 18:14 06/03/17 13:06 Promethazine HCl (Phenergan Plain) 6.25 mg Q6H PRN ORAL For Cough 06/03/17 12:00 07/03/17 11:59 Sodium Chloride 1,000 ml @ 50 mls/hr Q20H IV 06/02/17 21:00 07/02/17 20:59 06/02/17 22:35 ROBIN LESLIE Jun 03, 2017 13:31
--- NOTE | 2017-06-03 14:09 | Diagnostic Imaging Report ---
Indication: Abdominal pain Comparison: None Single view of the abdomen obtained Findings: Bowel gas pattern is nonspecific. No mass, ectopic calcifications, or abnormal gas collections are identified. The bones are osteopenic. Impression: No acute findings
[2017-06-03 15:51] VITALS: BP 147/77
--- NOTE | 2017-06-03 20:18 | Cardiology Progress Note ---
Assessment/Plan Assessment/Plan ekg neg trop 1 set neg will reorder more sts adn fu on echo ordered Objective Last 24 Hour Vital Signs Date Time Temp Pulse Resp B/P (MAP) Pulse Ox O2 Delivery O2 Flow Rate FiO2 06/03/17 19:39 66 16 Room Air 21 06/03/17 17:20 98.4 06/03/17 16:00 64 06/03/17 15:51 98.4 68 18 147/77 97 Room Air 06/03/17 12:00 76 06/03/17 11:52 98.3 67 18 133/67 100 Room Air 06/03/17 08:25 69 18 Room Air 06/03/17 08:08 98.1 71 18 121/76 100 Room Air 06/03/17 08:00 71 06/03/17 04:25 98.0 60 20 107/58 98 Room Air 06/03/17 04:00 64 06/03/17 00:22 97.2 82 20 103/56 96 06/03/17 00:00 78 Intake and Output 06/03/17 06/04/17 19:00 07:00 Intake Total 1340 ml Output Total 1250 ml Balance 90 ml Intake Oral 740 ml IV Total 600 ml Output Urine Total 1250 ml # Bowel Movements 1 Laboratory Tests Test 06/03/17 07:35 06/03/17 10:10 White Blood Count 6.4 K/UL (4.8-10.8) Red Blood Count 4.25 M/UL (4.20-5.40) Hemoglobin 11.8 G/DL (12.0-16.0) L Hematocrit 37.5 % (37.0-47.0) Mean Corpuscular Volume 88 FL (80-99) Mean Corpuscular Hemoglobin 27.7 PG (27.0-31.0) Mean Corpuscular Hemoglobin Concent 31.3 G/DL (32.0-36.0) L Red Cell Distribution Width 11.6 % (11.6-14.8) Platelet Count 177 K/UL (150-450) Mean Platelet Volume 7.2 FL (6.5-10.1) Neutrophils (%) (Auto) 47.7 % (45.0-75.0) Lymphocytes (%) (Auto) 36.9 % (20.0-45.0) Monocytes (%) (Auto) 9.3 % (1.0-10.0) Eosinophils (%) (Auto) 4.7 % (0.0-3.0) H Basophils (%) (Auto) 1.5 % (0.0-2.0) Sodium Level 144 mEQ/L (135-145) Potassium Level 4.6 mEQ/L (3.4-4.9) Chloride Level 111 mEQ/L (98-107) H Carbon Dioxide Level 21 mEQ/L (20-30) Anion Gap 12 (5-15) Blood Urea Nitrogen 7 mg/dL (7-23) Creatinine 0.6 mg/dL (0.5-0.9) Estimat Glomerular Filtration Rate > 60 mL/min (>60) Glucose Level 212 mg/dL (74-106) H Calcium Level 9.1 mg/dL (8.6-10.2) Phosphorus Level 3.8 mg/dL (2.5-4.8) Albumin 3.4 g/dL (3.5-5.2) L Lactic Acid Level 1.30 mmol/L (0.66-2.22) Microbiology Date/Time Source Procedure Growth Status 06/03/17 01:38 Nasal Nares Influenza Types A,B Antigen (JOHAN) - Final Complete CHUYITA NEGRON Jun 03, 2017 20:18
[2017-06-03 20:46] VITALS: BP 134/69
[2017-06-04 00:48] VITALS: BP 108/55
[2017-06-04 04:45] VITALS: BP 96/77
[2017-06-04] MEDS: NovoLOG Insulin Flexpen SUBQ SCH ×3 (06:25→17:20)
[2017-06-04 08:41] VITALS: BP 112/64
[2017-06-04 08:58] LABS: TROPONIN I < 0.30 ng/mL (<=0.30)
[2017-06-04] MEDS: Heparin 5000 units/ml inj SUBQ SCH (09:05)
[2017-06-04 11:56] VITALS: BP 130/73
[2017-06-04 15:34] VITALS: BP 105/63
--- NOTE | 2017-06-04 15:35 | Pulmonology Progress Note ---
Assessment/Plan Problems: (1) Purulent bronchitis (2) Asthma (3) History of coronary artery stent placement (4) Diabetes mellitus Assessment/Plan respiratory treatment improving asymptoamtic echo reviewed check sputum Subjective ROS Limited/Unobtainable: No HEENT: Repors: no symptoms Respiratory: Reports: no symptoms Gastrointestinal/Abdominal: Reports: no symptoms Genitourinary: Reports: no symptoms Neurologic: Reports: no symptoms Allergies: Coded Allergies: MORPHINE (Unverified Allergy, Severe, HIVES, SWELLING OF FACE, RASH, ) AZITHROMYCIN (Verified Allergy, Unknown, Burning, 06/02/17) Objective Last 24 Hour Vital Signs Date Time Temp Pulse Resp B/P (MAP) Pulse Ox O2 Delivery O2 Flow Rate FiO2 06/04/17 13:19 98.2 06/04/17 12:00 62 06/04/17 11:56 98.2 64 18 130/73 99 Room Air 06/04/17 11:00 73 20 Room Air 21 06/04/17 08:41 97.5 66 18 112/64 98 Room Air 06/04/17 08:00 56 06/04/17 04:45 97.7 63 16 96/77 96 63 06/04/17 04:00 60 06/04/17 00:48 97.9 68 12 108/55 96 06/04/17 00:00 67 06/03/17 20:46 97.7 22 134/69 98 Room Air 06/03/17 20:00 66 06/03/17 19:39 66 16 Room Air 21 06/03/17 16:00 64 06/03/17 15:51 98.4 68 18 147/77 97 Room Air Intake and Output 06/04/17 06/05/17 19:00 07:00 Intake Total 600 ml Output Total 950 ml Balance -350 ml Intake Oral 600 ml Output Urine Total 950 ml General Appearance: WD/WN HEENT: normocephalic, atraumatic Respiratory/Chest: chest wall non-tender, lungs clear Breasts: no masses Cardiovascular: normal peripheral pulses Abdomen: soft, non tender, no organomegaly Genitourinary: normal external genitalia Skin: no rash Microbiology Date/Time Source Procedure Growth Status 06/02/17 13:21 Blood Blood Culture - Preliminary NO GROWTH AFTER 24 HOURS Resulted 06/02/17 13:05 Blood Blood Culture - Preliminary NO GROWTH AFTER 24 HOURS Resulted 06/03/17 01:38 Nasal Nares Influenza Types A,B Antigen (JOHAN) - Final Complete Laboratory Tests 06/04/17 07:40: Troponin I < 0.30 Current Medications Medications (Trade) Dose Ordered Sig/Chasidy Route PRN Reason Start Time Stop Time Status Last Admin Dose Admin Acetaminophen (Tylenol) 650 mg Q4H PRN ORAL FEVER 06/02/17 18:15 07/02/17 18:14 06/04/17 12:20 Albuterol/ Ipratropium (DuoNeb 0.5-3(2.5)mg/3ml) 3 ml Q4H PRN HHN Shortness of Breath 06/02/17 18:15 06/07/17 18:14 Amitriptyline HCl (Elavil) 10 mg BEDTIME ORAL 06/02/17 21:00 07/02/17 20:59 06/03/17 21:59 Dextrose (Dextrose 50%) STAT PRN IV Hypoglycemia 06/02/17 18:15 07/02/17 18:14 Doxycycline Monohydrate (Vibramycin) 100 mg EVERY 12 HOURS ORAL 06/03/17 14:00 06/10/17 13:59 06/04/17 09:04 Gabapentin (Neurontin) 100 mg THREE TIMES A DAY ORAL 06/03/17 21:00 07/03/17 20:59 06/04/17 13:28 Heparin Sodium (Porcine) (Heparin 5000 units/ml) 5,000 units EVERY 12 HOURS SUBQ 06/02/17 21:00 07/02/17 20:59 06/04/17 09:05 Insulin Aspart (NovoLOG) BEFORE MEALS AND HS SUBQ 06/02/17 21:00 07/02/17 20:59 06/04/17 12:14 Lorazepam (Ativan 2mg/ml 1ml) 2 mg Q2H PRN IV For Anxiety 06/02/17 18:15 06/09/17 18:14 Ondansetron HCl (Zofran) 4 mg Q6H PRN IVP Nausea & Vomiting 06/02/17 18:15 07/02/17 18:14 Polyethylene Glycol (Miralax) 17 gm DAILYPRN PRN ORAL Constipation 06/02/17 18:15 07/02/17 18:14 06/03/17 13:06 Promethazine HCl (Phenergan Plain) 6.25 mg Q6H PRN ORAL For Cough 06/03/17 12:00 07/03/17 11:59 Sodium Chloride 1,000 ml @ 50 mls/hr Q20H IV 06/02/17 21:00 07/02/17 20:59 06/04/17 13:29 ROBIN LESLIE Jun 04, 2017 15:35
[2017-06-04] MEDS ORDERED: 1/2 NS 1000ml IV ONE (18:29)
[2017-06-04] MEDS ORDERED: NS 275ml ONE (18:29)
[2017-06-04] MEDS ORDERED: Tubing IV Secondary IV ONE (18:29)
--- NOTE | 2017-06-04 18:47 | Infectious Diseases Prog Note ---
Assessment/Plan Assessment/Plan Abx: IV Vanco/Cefepime 06/02-06/03 Doxycycline 06/03- Assesment: SOB/Cough- suspect bronchitis- possibly viral infection exacerbated symptoms -CXR: Suspected mild basilar atelectasis and/or scarring. -Flu neg Diarrhea, now constipated -KUB: No acute findings Lactic acidosis, improving Afebrile, no leukocytosis Dm2 Asthma/bronchitis Plan: -Ok to discharge home on Doxycycline 100mg PO bid (abx 11/01) in the setting of bronchitis (allergic to azithromycin) -f/u final cx Thank you for this consultation. WIll continue to follow along with you. Subjective Allergies: Coded Allergies: MORPHINE (Unverified Allergy, Severe, HIVES, SWELLING OF FACE, RASH, ) AZITHROMYCIN (Verified Allergy, Unknown, Burning, 06/02/17) Subjective afebrile VSS at for discharge today Objective Vital Signs Last 24 Hour Vital Signs Date Time Temp Pulse Resp B/P (MAP) Pulse Ox O2 Delivery O2 Flow Rate FiO2 06/04/17 16:00 69 06/04/17 15:34 96.8 71 18 105/63 96 Room Air 06/04/17 13:19 98.2 06/04/17 12:00 62 06/04/17 11:56 98.2 64 18 130/73 99 Room Air 06/04/17 11:00 73 20 Room Air 21 06/04/17 08:41 97.5 66 18 112/64 98 Room Air 06/04/17 08:00 56 06/04/17 04:45 97.7 63 16 96/77 96 63 06/04/17 04:00 60 06/04/17 00:48 97.9 68 12 108/55 96 06/04/17 00:00 67 06/03/17 20:46 97.7 22 134/69 98 Room Air 06/03/17 20:00 66 06/03/17 19:39 66 16 Room Air 21 Height (Feet): 5 Height (Inches): 0.00 Weight (Pounds): 140 Objective not done as already discharged Microbiology Date/Time Source Procedure Growth Status 06/02/17 13:21 Blood Blood Culture - Preliminary NO GROWTH AFTER 24 HOURS Resulted 06/02/17 13:05 Blood Blood Culture - Preliminary NO GROWTH AFTER 24 HOURS Resulted 06/03/17 01:38 Nasal Nares Influenza Types A,B Antigen (JOHAN) - Final Complete Laboratory Tests Test 06/04/17 07:40 Troponin I < 0.30 ng/mL (<=0.30) Karo Laws M.D. Jun 04, 2017 18:47
--- NOTE | 2017-06-07 08:30 | Cardiology Report ---
APPROVED REPORT EXAM: Two-dimensional and M-mode echocardiogram with Doppler and color Doppler. INDICATION Chest Pain M-Mode DIMENSIONS IVSd1.5 (0.7-1.1cm)Left Atrium (MM)4.0 (1.6-4.0cm) LVDd4.7 (3.5-5.6cm)Aortic Root2.9 (2.0-3.7cm) PWd1.6 (0.7-1.1cm)Aortic Cusp Exc.1.6 (1.5-2.0cm) LVDs3.4 (2.5-4.0cm) PWs2.2 cm Normal left ventricular chamber size, systolic function and wall motion. Left ventricular ejection fraction estimated to be 65 %. Borderline mild left ventricular hypertrophy by 2-D. Anterior Echo-free space, may be due to pericardial fat or effusion. All other cardiac chamber sizes are within normal limits. Focal aortic valve sclerosis with adequate cusp excursion. Thickened mitral valve leaflets with normal excursion. Mitral annulus and aortic root calcification. Pulmonic valve not well visualized. Normal tricuspid valve structure. IVC at normal size with physiologic collapse. A color flow and spectral Doppler study was performed and revealed: Trace mitral regurgitation. suggest mildly reduced left ventricular relaxation c/w mild diastolic dysfunction. Trace tricuspid regurgitation. Tricuspid systolic velocities suggests peak right ventricular systolic pressure of 28 mmHg.
--- NOTE | 2017-06-07 13:13 | Discharge Summary ---
Discharge Summary Hospital Course Date of Admission Jun 02, 2017 at 16:35 Date of Discharge Jun 04, 2017 at 18:30 Admitting Diagnosis PNEUMONIA,SEPSIS HPI Amirah Nassar is a 66 year old female who was admitted on Jun 02, 2017 at 16:35 for Pneumonia, Sepsis Hospital Course dc summary #[id number] Discharge Medications Continued Medications: Donepezil Hcl* (Donepezil Hcl*) 10 Mg Tablet 10 MG ORAL BEDTIME, TAB Gabapentin* (Neurontin*) 100 Mg Capsule 100 MG ORAL THREE TIMES A DAY, #15 CAP 0 Refills Hydrochlorothiazide* (Hydrochlorothiazide*) 25 Mg Tablet 25 MG ORAL DAILY, TAB Insulin Human Isophan/Regular (Humulin 70-30 Vial) 5 Units Vial 40 UNITS SUBQ BEFORE BREAKFAST, VIAL Metformin Hcl* (Metformin Hcl*) 1,000 Mg Tablet 1000 MG ORAL BID, TAB Olopatadine HCl (Pazeo) 2.5 Ml Drops 2.5 ML OP, ML Omeprazole (Omeprazole) 40 Mg Capsule.dr 40 MG ORAL DAILY, CAP Discharge Discharge Disposition Patient was discharged to Home (01) Discharge Diagnoses: Discharge Instructions Discharge Instructions Special Instructions I have been assigned to complete a D/C Summary on this account. I was not involved in the patient management Lydia Landa NP ([facility]) Jun 07, 2017 13:13
--- NOTE | 2017-06-08 04:30 | Discharge Summary 2 SIG ---
DATE OF ADMISSION: 06/02/2017 DATE OF DISCHARGE: 06/04/2017 REASON FOR ADMISSION: 66-year-old female presented to emergency room with complaint of generalized weakness, body aches, cough, shortness of breath, and abdominal pain as well as diarrhea for the last three days. The patient was very anxious. Workup in the emergency room revealed no fever, no leukocytosis. Lactic acid -6.1. Chest x-ray revealed no acute cardiopulmonary pathology, but showed bilateral atelectasis. Hemoglobin and hematocrit were stable. Electrolytes were stable. Troponin was negative. EKG showed sinus rhythm. Potassium -5.8. The patient was admitted for further management. ADMITTING DIAGNOSES: 1. Purulent bronchitis. 2. Asthma. 3. Lactic acidosis. 4. Hyperkalemia. 5. Diabetes. 6. History of coronary artery stent. HOSPITAL COURSE: The patient was admitted. Infectious Disease consult was requested. The patient was on empiric antibiotics. As mentioned above, chest x-ray revealed no acute cardiopulmonary pathology, but showed bilateral atelectasis. Supplemental oxygen provided as needed to keep saturation above 92%. Pulmonary toilet was provided. The patient was on empiric antibiotic. Sputum culture was ordered, but was not collected. Antitussives were provided as needed. Echocardiogram revealed preserved ejection fraction of 65%, right ventricular systolic pressure of 28. Blood cultures were negative. Influenza screen was negative. Rail Grinder followed. Diarrhea resolved. KUB showed no acute findings. Hyperkalemia was treated, and potassium was stable afterwards. Lactic acid next day -1.3. Repeated troponin negative. Blood sugar was managed with sliding scale of insulin. The patient was stable for discharge. FINAL DIAGNOSES: 1. Purulent bronchitis. 2. Asthma. 3. Lactic acidosis, improved. 4. Hyperkalemia, resolved. 5. Diabetes mellitus. 6. History of coronary stent. 7. Diarrhea, resolved. DISCHARGE MEDICATIONS: See medication reconciliation list. DISCHARGE INSTRUCTIONS: The patient was discharged home. Follow up with the primary medical doctor. Sam Sandoval M.D. I have been assigned to dictate discharge summary on this account and I was not involved in the patient's management. Lydia Landa N.P. ([facility]) DR: GILBERT JOB#: [id number] CC: JAISON
--- NOTE | 2017-06-10 23:14 | Cardiology Report ---
APPROVED REPORT EKG Measurement Heart [id number] VA 150P21 [id number] Normal sinus rhythm Normal ECG
--- NOTE | 2017-06-10 23:20 | Cardiology Report ---
APPROVED REPORT EKG Measurement Heart [id number] DE 152P46 [id number] Normal sinus rhythm Normal ECG
== END 2017-06-04 18:30 | disposition home or self-care (01) | DRG 140 ==
LOC: EMR 13:22 → 2E 16:35 → EDBEDREQ 16:41
DX: J41.1 Mucopurulent chronic bronchitis (principal); E87.2 Acidosis; E11.9 Type 2 diabetes mellitus without complications; J45.909 Unspecified asthma, uncomplicated; K59.00 Constipation, unspecified; E87.5 Hyperkalemia; J98.11 Atelectasis; R19.7 Diarrhea, unspecified; Z95.5 Presence of coronary angioplasty implant and graft; Z79.82 Long term (current) use of aspirin; Z79.4 Long term (current) use of insulin
CPT/HCPCS: 36415; 71010; 74000; 80053; 80069; 81003; 82550; 82553; 82962; 83605; 83880; 84484; 85025; 86710; 87040; 93005; 93306; 94664; 99285; J1815

== ENCOUNTER 2017-12-03 19:02 | Emergency (ER) | payer MEDICARE, MEDICAID ==
[~2017-12-03] VITALS: Ht 154.9 cm; Wt 72.6 kg
[~2017-12-03 19:02] MED LIST changes: +AMITRIPTYLINE100 MG ORAL; +ATORVASTATIN CA20 MG ORAL; +DONEPEZIL HCL10 MG ORAL; +LATANOPROST2.5 ML BOTH EYES; +MELOXICAM7.5 MG PO; +OYSTERCAL-D 501 EACH PO; +PAZEO2.5 ML OP
[2017-12-03] MEDS ORDERED: OYSTER SHELL 51 EAC1 PO (19:24)
[2017-12-03] MEDS ORDERED: SYMBICORT 1601 PUFFS INH (19:24)
[2017-12-03] MEDS ORDERED: TRAMADOL HCL50 MG ORAL (19:24)
[2017-12-03] MEDS ORDERED: Albuterol/Ipratropium 3ml neb HHN ONE (19:30)
[2017-12-03] MEDS ORDERED: Nitroglycerin Subl 0.4mg tab SL PRN (19:45)
[2017-12-03 19:56] VITALS: BP 89/50
[2017-12-03 20:16] LABS: APPEARANCE,URINE CLEAR; BILIRUBIN, URINE NEGATIVE (NEGATIVE); COLOR,URINE PALE YELLOW; GLUCOSE, URINE (UA) 4+ (NEGATIVE); HEMATOCRIT 38.3 % (37.0-47.0); KETONES,URINE 1+ (NEGATIVE); LEUKOCYTE ESTERASE ,URINE NEGATIVE (NEGATIVE); LYMPHOCYTES % (AUTO) 41.8 % (20.0-45.0); MEAN CORPUSCULAR VOLUME 82 FL (80-99); MONOCYTES % (AUTO) 6.9 % (1.0-10.0); NEUTROPHILS % (AUTO) 48.3 % (45.0-75.0); NITRITE,URINE NEGATIVE (NEGATIVE); PH,URINE 6.5 (4.5-8.0); PLATELET COUNT 171 K/UL (150-450); PROTEIN,URINE NEGATIVE (NEGATIVE); RED BLOOD COUNT 4.67 M/UL (4.20-5.40); RED CELL DISTRIBUTION WIDTH 11.2 % (11.6-14.8); UROBILINOGEN,URINE NORMAL MG/DL (0.0-1.0); WHITE BLOOD COUNT 9.6 K/UL (4.8-10.8)
[2017-12-03 20:21] LABS: ANION GAP 11 mmol/L (5-15); BLOOD UREA NITROGEN 18 mg/dL (7-18); CALCIUM 9.5 MG/DL (8.5-10.1); CARBON DIOXIDE 20 MMOL/L (21-32); CHLORIDE 101 MMOL/L (98-107); CREATININE 0.8 MG/DL (0.55-1.30); POTASSIUM 4.7 MMOL/L (3.5-5.1); SODIUM 132 MMOL/L (136-145)
[2017-12-03 20:22] LABS: INR 0.9 (0.9-1.1)
[2017-12-03 20:45] LABS: ALANINE AMINOTRANSFERASE 17 U/L (12-78); ALBUMIN 3.7 G/DL (3.4-5.0); ALKALINE PHOSPHATASE 93 U/L (46-116); ASPARTATE AMINO TRANSFERASE 34 U/L (15-37); BILIRUBIN,TOTAL 0.3 MG/DL (0.2-1.0); CKMB < 0.5 NG/ML (0.0-3.6); CREATINE KINASE 108 U/L (26-308); PHOSPHORUS 2.4 MG/DL (2.5-4.9)
[2017-12-03] MEDS ORDERED: Sodium Chloride 500ML 500 ML IV ONE (21:00)
[2017-12-03 21:16] VITALS: BP 169/73
[2017-12-03] MEDS ORDERED: Norco 5mg/325mg tab ORAL ONE (21:30)
--- NOTE | 2017-12-03 22:44 | Emergency Room Report ---
History of Present Illness General Chief Complaint: Chest Pain Source: Patient, Medical Record Present Illness HPI Patient is a 67-year-old female who presented after increased chest pain and productive cough. Patient reports having increased pain with deep breath. Patient has prior history of asthma. She had been noted to have a cough with increased yellow sputum. She reports having subjective fever. She denies any leg pain or swelling. Allergies: Coded Allergies: MORPHINE (Unverified Allergy, Severe, HIVES, SWELLING OF FACE, RASH, ) AZITHROMYCIN (Verified Allergy, Unknown, Burning, 06/02/17) Patient History Past Medical History: see triage record Last Menstrual Period: NA Reviewed Nursing Documentation: PMH: Agreed; PSxH: Agreed Nursing Documentation-PMH Hx Hypertension: Yes Hx Asthma: Yes Hx Diabetes: Yes Hx Cancer: No Hx Gastrointestinal Problems: No Hx Neurological Problems: No - arthritis Review of Systems All Other Systems: negative except mentioned in HPI Physical Exam Vital Signs Date Time Temp Pulse Resp B/P (MAP) Pulse Ox O2 Delivery O2 Flow Rate FiO2 12/03/17 19:14 99.0 65 26 173/69 100 Room Air 99.0 Sp02 EP Interpretation: reviewed, normal General Appearance: normal inspection, well appearing, no apparent distress, alert, GCS 15 Head: atraumatic ENT: normal ENT inspection, hearing grossly normal, normal voice Neck: normal inspection, full range of motion, supple, no bony tend Respiratory: normal inspection, no retraction, crackles, wheezing Cardiovascular #1: regular rate, rhythm, no edema Gastrointestinal: normal inspection, normal bowel sounds, non tender, soft, no guarding, no hernia Genitourinary: no CVA tenderness Musculoskeletal: normal inspection, back normal, normal range of motion Neurologic: normal inspection, alert, oriented x3, responsive, consignee III-XII nml as tested, speech normal Psychiatric: normal inspection, judgement/insight normal, mood/affect normal Skin: normal inspection, normal color, no rash Medical Decision Making Diagnostic Impression: Primary Impression: Diabetes mellitus Additional Impression: Pneumonia ER Course Patient presented for cough. Differential diagnosis included but was not limited to bronchitis, pneumonia, pulmonary embolism, pericarditis, asthma, foreign body.Because of complexity of patient's case laboratory testing and imaging studies were ordered. The laboratory testing showed normal white blood count. Patient was noted to have evidence of pneumonia and increasing interstitial lung markings on chest x- ray. The patient was started on IV fluids. The initial lactic acid level was noted to be elevated. Patient was discussed with Dr. Madrigal her [place] hospital transfer. Labs Test 12/03/17 19:30 12/03/17 21:42 White Blood Count 9.6 K/UL (4.8-10.8) Red Blood Count 4.67 M/UL (4.20-5.40) Hemoglobin 13.0 G/DL (12.0-16.0) Hematocrit 38.3 % (37.0-47.0) Mean Corpuscular Volume 82 FL (80-99) Mean Corpuscular Hemoglobin 27.7 PG (27.0-31.0) Mean Corpuscular Hemoglobin Concent 33.8 G/DL (32.0-36.0) Red Cell Distribution Width 11.2 % (11.6-14.8) Platelet Count 171 K/UL (150-450) Mean Platelet Volume 9.5 FL (6.5-10.1) Neutrophils (%) (Auto) 48.3 % (45.0-75.0) Lymphocytes (%) (Auto) 41.8 % (20.0-45.0) Monocytes (%) (Auto) 6.9 % (1.0-10.0) Eosinophils (%) (Auto) 2.0 % (0.0-3.0) Basophils (%) (Auto) 1.0 % (0.0-2.0) Prothrombin Time 9.5 SEC (9.30-11.50) Prothromb Time International Ratio 0.9 (0.9-1.1) Activated Partial Thromboplast Time 21 SEC (23-33) Urine Color Pale yellow Urine Appearance Clear Urine pH 6.5 (4.5-8.0) Urine Specific [place] 1.005 (1.005-1.035) Urine Protein Negative (NEGATIVE) Urine Glucose (UA) 4+ (NEGATIVE) Urine Ketones 1+ (NEGATIVE) Urine Occult Blood Negative (NEGATIVE) Urine Nitrite Negative (NEGATIVE) Urine Bilirubin Negative (NEGATIVE) Urine Urobilinogen Normal MG/DL (0.0-1.0) Urine Leukocyte Esterase Negative (NEGATIVE) Sodium Level 132 MMOL/L (136-145) Potassium Level 4.7 MMOL/L (3.5-5.1) Chloride Level 101 MMOL/L (98-107) Carbon Dioxide Level 20 MMOL/L (21-32) Anion Gap 11 mmol/L (5-15) Blood Urea Nitrogen 18 mg/dL (7-18) Creatinine 0.8 MG/DL (0.55-1.30) Estimat Glomerular Filtration Rate > 60 mL/min (>60) Glucose Level 353 MG/DL (74-106) Calcium Level 9.5 MG/DL (8.5-10.1) Phosphorus Level 2.4 MG/DL (2.5-4.9) Magnesium Level 1.5 MG/DL (1.8-2.4) Total Bilirubin 0.3 MG/DL (0.2-1.0) Aspartate Amino Transf (AST/SGOT) 34 U/L (15-37) Alanine Aminotransferase (ALT/SGPT) 17 U/L (12-78) Alkaline Phosphatase 93 U/L (46-116) Total Creatine Kinase 108 U/L (26-308) Creatine Kinase MB < 0.5 NG/ML (0.0-3.6) Creatine Kinase MB Relative Index 0.4 Troponin I 0.000 ng/mL (0.000-0.056) Pro-B-Type Natriuretic Peptide 211 pg/mL (0-125) Total Protein 7.4 G/DL (6.4-8.2) Albumin 3.7 G/DL (3.4-5.0) Globulin 3.7 g/dL Albumin/Globulin Ratio 1.0 (1.0-2.7) Lactic Acid Level 3.60 mmol/L (0.66-2.22) EKG Diagnostic Results Rate: normal Rhythm: NSR ST Segments: no acute changes Rhythm Strip Diag. Results EP Interpretation: yes Rhythm: NSR, no PVC's, no ectopy Last Vital Signs Date Time Temp Pulse Resp B/P (MAP) Pulse Ox O2 Delivery O2 Flow Rate FiO2 12/03/17 21:35 98.8 12/03/17 21:16 64 29 169/73 100 Room Air Status: unchanged Disposition: XFER SHT-TRM HOSP Condition: Stable Referrals: [facility]ERR[facility] (PCP) Buddy Ray Dec 03, 2017 22:44
[2017-12-03 22:59] VITALS: BP 169/74
[2017-12-03 23:30] VITALS: BP 131/57
[2017-12-03 23:57] VITALS: BP 131/57
--- NOTE | 2017-12-04 09:41 | Diagnostic Imaging Report ---
Indication: Dyspnea Comparison: 06/02/2017 A single view chest radiograph was obtained. Findings: There is minimal basilar atelectasis. The heart is enlarged. The aorta is mildly enlarged consistent with atherosclerotic vascular disease. The bones are osteopenic. Impression: No acute disease
--- NOTE | 2017-12-05 17:29 | Cardiology Report ---
APPROVED REPORT EKG Measurement Heart [id number] DC 158P55 [id number] Normal sinus rhythm Normal ECG
== END 2017-12-03 23:57 | disposition short-term general hospital (02) ==
LOC: EMR 20:14
DX: J18.9 Pneumonia, unspecified organism (principal); E11.9 Type 2 diabetes mellitus without complications; I10 Essential (primary) hypertension; J45.909 Unspecified asthma, uncomplicated; Z88.1 Allergy status to other antibiotic agents; Z88.6 Allergy status to analgesic agent
CPT/HCPCS: 36415; 71045; 80053; 81003; 82550; 82553; 82962; 83605; 83735; 83880; 84100; 84484; 85025; 85610; 85730; 86710; 87040; 93005; 94640; 94664; 96374; 99285; J7620

== ENCOUNTER 2017-12-30 15:41 | Emergency (ER) | payer MEDICARE, MEDICAID ==
[~2017-12-30] VITALS: Ht 162.6 cm; Wt 72.6 kg
[~2017-12-30 15:41] MED LIST changes: +OYSTER SHELL 51 EAC1 PO; +SYMBICORT 1601 PUFFS INH; +TRAMADOL HCL50 MG ORAL
[2017-12-30 16:00] VITALS: BP 149/73
[2017-12-30] MEDS ORDERED: Sodium Chloride 500ML 500 ML IV ONE (16:11)
[2017-12-30] MEDS ORDERED: Solu-MEDROL 125mg Inj IVP ONE (16:15)
[2017-12-30] MEDS ORDERED: Ipratropium 0.02% Inh Soln 2.5ml UD HHN ONE (16:15)
[2017-12-30] MEDS ORDERED: Albuterol ud Inhalation HHN ONE (16:15)
--- NOTE | 2017-12-30 16:30 | Diagnostic Imaging Report ---
Indication: Dyspnea Comparison: 12/03/2017 A single view chest radiograph was obtained. Findings: Basal atelectasis demonstrated. Heart size is normal. The bones are slightly osteopenic. IMPRESSION: No change. Basal atelectasis versus scarring
[2017-12-30 16:40] LABS: BASOPHILS % (AUTO) 1.1 % (0.0-2.0); EOSINOPHILS % (AUTO) 2.4 % (0.0-3.0); HEMOGLOBIN 13.1 G/DL (12.0-16.0); LYMPHOCYTES % (AUTO) 28.2 % (20.0-45.0); MEAN CORPUSCULAR VOLUME 83 FL (80-99); MONOCYTES % (AUTO) 8.2 % (1.0-10.0); PLATELET COUNT 212 K/UL (150-450); RED BLOOD COUNT 4.57 M/UL (4.20-5.40); RED CELL DISTRIBUTION WIDTH 11.5 % (11.6-14.8); WHITE BLOOD COUNT 11.2 K/UL (4.8-10.8)
[2017-12-30 16:58] LABS: ANION GAP 15 mmol/L (5-15); BLOOD UREA NITROGEN 13 mg/dL (7-18); CALCIUM 9.3 MG/DL (8.5-10.1); CARBON DIOXIDE 20 MMOL/L (21-32); CHLORIDE 102 MMOL/L (98-107); CREATININE 0.8 MG/DL (0.55-1.30); POTASSIUM 3.9 MMOL/L (3.5-5.1); SODIUM 137 MMOL/L (136-145)
[2017-12-30 17:01] LABS: APPEARANCE,URINE CLEAR; BILIRUBIN, URINE NEGATIVE (NEGATIVE); COLOR,URINE PALE YELLOW; GLUCOSE, URINE (UA) NEGATIVE (NEGATIVE); KETONES,URINE NEGATIVE (NEGATIVE); LEUKOCYTE ESTERASE ,URINE NEGATIVE (NEGATIVE); NITRITE,URINE NEGATIVE (NEGATIVE); PH,URINE 7 (4.5-8.0); PROTEIN,URINE NEGATIVE (NEGATIVE); UROBILINOGEN,URINE NORMAL MG/DL (0.0-1.0)
[2017-12-30 17:09] LABS: ALANINE AMINOTRANSFERASE 23 U/L (12-78); ALBUMIN 3.8 G/DL (3.4-5.0); ALKALINE PHOSPHATASE 87 U/L (46-116); ASPARTATE AMINO TRANSFERASE 19 U/L (15-37); BILIRUBIN,TOTAL 0.4 MG/DL (0.2-1.0)
[2017-12-30] MEDS ORDERED: ALBUTEROL SULF8.5 GM INH (18:00)
[2017-12-30] MEDS ORDERED: PROMETHAZINE-D118 ML ORAL (18:00)
[2017-12-30] MEDS ORDERED: LEVAQUIN750 MG ORAL (18:00)
[2017-12-30 18:15] VITALS: BP 146/64
--- NOTE | 2017-12-30 18:49 | Emergency Room Report ---
History of Present Illness General Chief Complaint: Dyspnea/Respdistress Source: Patient Present Illness HPI 67-year-old female presents ED for evaluation. Notes cough congestion weakness and body aches for the last 5 days. Afebrile in triage. Also noting diarrhea. Notes bodyaches. Denies chest pain or shortness of breath. Feeling dizzy and weak. Pain is dull, 8 out of 10, nonradiating. States she was admitted for pneumonia approximately one month ago. No other aggravating relieving factors. Denies any other associated symptoms Allergies: Coded Allergies: MORPHINE (Unverified Allergy, Severe, HIVES, SWELLING OF FACE, RASH, ) AZITHROMYCIN (Verified Allergy, Unknown, Burning, 06/02/17) Patient History Past Medical History: DM, HTN, asthma Past Surgical History: none Pertinent Family History: none Social History: Denies: smoking, alcohol use, drug use Now: No Immunizations: UTD Reviewed Nursing Documentation: PMH: Agreed; PSxH: Agreed Nursing Documentation-PMH Past Medical History: No History, Except For Hx Hypertension: Yes Hx Asthma: Yes Hx Diabetes: Yes Hx Cancer: No Hx Gastrointestinal Problems: No Hx Neurological Problems: No - arthritis Review of Systems All Other Systems: negative except mentioned in HPI Physical Exam Vital Signs Date Time Temp Pulse Resp B/P (MAP) Pulse Ox O2 Delivery O2 Flow Rate FiO2 12/30/17 15:50 98.4 100 20 149/73 97 Room Air 98.4 12/30/17 16:42 21 Sp02 EP Interpretation: reviewed, normal General Appearance: no apparent distress, alert, GCS 15, non-toxic Head: normocephalic, atraumatic Eyes: bilateral eye normal inspection, bilateral eye PERRL ENT: hearing grossly normal, normal pharynx, no angioedema, normal voice Neck: full range of motion, supple/symm/no masses Respiratory: chest non-tender, lungs clear, normal breath sounds, speaking full sentences Cardiovascular #1: regular rate, rhythm, no edema Cardiovascular #2: 2+ carotid (R), 2+ carotid (L), 2+ radial (R), 2+ radial (L) , 2+ dorsalis pedis (R), 2+ dorsalis pedis (L) Gastrointestinal: normal bowel sounds, non tender, soft, non-distended, no guarding, no rebound Rectal: deferred Genitourinary: normal inspection, no CVA tenderness Musculoskeletal: back normal, gait/station normal, normal range of motion, non- tender Neurologic: alert, oriented x3, responsive, motor strength/tone normal, sensory intact, speech normal Psychiatric: judgement/insight normal, memory normal, mood/affect normal, no suicidal/homicidal ideation Reflexes: 3+ bicep (R), 3+ bicep (L), 3+ tricep (R), 3+ tricep (L), 3+ knee (R) , 3+ knee (L) Skin: normal color, no rash, warm/dry, well hydrated Lymphatic: no adenopathy Medical Decision Making Diagnostic Impression: Primary Impression: Atypical pneumonia ER Course Hospital Course 67-year-old female presents to ED complaining of bodyaches, cough, weakness, diarrhea Differential diagnoses include: URI, bronchitis, asthma/COPD, pneumonia Clinical course Patient placed on stretcher. After initial history, physical exam reveals an elderly female in no acute distress. Bilateral TM unremarkable. No pharyngeal erythema. No tonsillar exudates. No lymphadenopathy. lungs clear. I ordered labs, IV fluids, EKG, chest x-ray. Labs reviewed- minimal leukocytosis, hemoglobin/hematocrit stable, electrolytes okay, lactate > 4 Chest x-ray shows atelectasis EKG - NSR, no acute ischemic changes interpreted by me discussed findings with patient. lactic acidosis secondary to metformin use. Per curb-65 criteria, patient does not require admission. Patient can be safely discharged to home with outpatient therapy. I reviewed chest x-ray from prior admission. Also showed some basilar atelectasis but no definitive infiltrate Diagnosis - atypical pneumonia Stable and discharged home with prescriptions for promethazine, Levaquin. Instructed to followup with PMD. Return to ED if symptoms recur or worsen Labs Test 12/30/17 16:15 12/30/17 16:30 White Blood Count 11.2 K/UL (4.8-10.8) Red Blood Count 4.57 M/UL (4.20-5.40) Hemoglobin 13.1 G/DL (12.0-16.0) Hematocrit 38.0 % (37.0-47.0) Mean Corpuscular Volume 83 FL (80-99) Mean Corpuscular Hemoglobin 28.6 PG (27.0-31.0) Mean Corpuscular Hemoglobin Concent 34.5 G/DL (32.0-36.0) Red Cell Distribution Width 11.5 % (11.6-14.8) Platelet Count 212 K/UL (150-450) Mean Platelet Volume 10.0 FL (6.5-10.1) Neutrophils (%) (Auto) 60.0 % (45.0-75.0) Lymphocytes (%) (Auto) 28.2 % (20.0-45.0) Monocytes (%) (Auto) 8.2 % (1.0-10.0) Eosinophils (%) (Auto) 2.4 % (0.0-3.0) Basophils (%) (Auto) 1.1 % (0.0-2.0) Sodium Level 137 MMOL/L (136-145) Potassium Level 3.9 MMOL/L (3.5-5.1) Chloride Level 102 MMOL/L (98-107) Carbon Dioxide Level 20 MMOL/L (21-32) Anion Gap 15 mmol/L (5-15) Blood Urea Nitrogen 13 mg/dL (7-18) Creatinine 0.8 MG/DL (0.55-1.30) Estimat Glomerular Filtration Rate > 60 mL/min (>60) Glucose Level 237 MG/DL (74-106) Lactic Acid Level 4.40 mmol/L (0.66-2.22) Calcium Level 9.3 MG/DL (8.5-10.1) Total Bilirubin 0.4 MG/DL (0.2-1.0) Aspartate Amino Transf (AST/SGOT) 19 U/L (15-37) Alanine Aminotransferase (ALT/SGPT) 23 U/L (12-78) Alkaline Phosphatase 87 U/L (46-116) Troponin I 0.000 ng/mL (0.000-0.056) Pro-B-Type Natriuretic Peptide 262 pg/mL (0-125) Total Protein 7.7 G/DL (6.4-8.2) Albumin 3.8 G/DL (3.4-5.0) Globulin 3.9 g/dL Albumin/Globulin Ratio 1.0 (1.0-2.7) Urine Color Pale yellow Urine Appearance Clear Urine pH 7 (4.5-8.0) Urine Specific [place] 1.005 (1.005-1.035) Urine Protein Negative (NEGATIVE) Urine Glucose (UA) Negative (NEGATIVE) Urine Ketones Negative (NEGATIVE) Urine Occult Blood Negative (NEGATIVE) Urine Nitrite Negative (NEGATIVE) Urine Bilirubin Negative (NEGATIVE) Urine Urobilinogen Normal MG/DL (0.0-1.0) Urine Leukocyte Esterase Negative (NEGATIVE) EKG Diagnostic Results Rate: normal Rhythm: NSR ST Segments: no acute changes ASA given to the pt in ED: No Rhythm Strip Diag. Results EP Interpretation: yes Rhythm: NSR, no PVC's, no ectopy Chest X-Ray Diagnostic Results Chest X-Ray Diagnostic Results : Chest X-Ray Ordered: Yes # of Views/Limited/Complete: 1 View Indication: Shortness of Breath EP Interpretation: Yes Interpretation: no consolidation, no effusion, no pneumothorax, other - atelectasis Impression: Other - atelectasis Electronically Signed by: Electronically signed by Yovanny Mendoza MD Last Vital Signs Date Time Temp Pulse Resp B/P (MAP) Pulse Ox O2 Delivery O2 Flow Rate FiO2 12/30/17 18:15 98.7 87 20 146/64 99 Room Air 98.7 12/30/17 16:53 21 Status: improved Disposition: HOME, SELF-CARE Condition: Stable Scripts Albuterol Sulfate* (ALBUTEROL SULFATE MDI*) 8.5 Gm Hfa.aer.ad 2 PUFF INH Q6H, #1 EA 0 Refills Prov: Yovanny Mendoza MD 12/30/17 D-Methorphan Hb/Prometh Hcl* (PROMETHAZINE-DM SYRUP*) 118 Ml Syrup 5 ML ORAL Q6H PRN for For Cough, #118 ML 0 Refills Prov: Yovanny Mendoza MD 12/30/17 Levofloxacin* (LEVAQUIN*) 750 Mg Tablet 750 MG ORAL DAILY, #7 TAB Prov: Yovanny Mendoza MD 12/30/17 Patient Instructions: Community-Acquired Pneumonia, Adult, [id number] Yovanny Mendoza MD December 30, 2017 18:49
== END 2017-12-30 18:15 | disposition home or self-care (01) ==
LOC: EMR 16:40
DX: J18.9 Pneumonia, unspecified organism (principal); I10 Essential (primary) hypertension; E11.9 Type 2 diabetes mellitus without complications; J45.909 Unspecified asthma, uncomplicated; Z88.5 Allergy status to narcotic agent; Z88.1 Allergy status to other antibiotic agents
CPT/HCPCS: 36415; 71045; 80053; 81003; 83605; 83880; 84484; 85025; 87040; 93005; 94640; 94664; 99284; J2930; J7040

== ENCOUNTER 2018-07-03 16:47 | Emergency (ER) | payer MEDICARE, MEDICAID ==
[~2018-07-03] VITALS: Ht 152.4 cm; Wt 72.6 kg
[~2018-07-03 16:47] MED LIST changes: +ALBUTEROL SULF8.5 GM INH; +LEVAQUIN750 MG ORAL; +PROMETHAZINE-D118 ML ORAL
[2018-07-03] MEDS ORDERED: Albuterol/Ipratropium 3ml neb HHN ONE (17:00)
--- NOTE | 2018-07-03 17:07 | Emergency Room Report ---
History of Present Illness General Chief Complaint: Upper Respiratory Illness Source: Patient Present Illness HPI Patient is a 67-year-old female with prior history of asthma who presented after increased nonproductive cough. Patient gradual onset of symptoms. Patient reports having increased headache. She reportedly had been taking multiple medications for asthma. She had been having cough for increased for the past 21 days.She reports having increased shortness of breath. Allergies: Coded Allergies: MORPHINE (Unverified Allergy, Severe, HIVES, SWELLING OF FACE, RASH, ) AZITHROMYCIN (Verified Allergy, Unknown, Burning, 06/02/17) Patient History Past Medical History: see triage record Reviewed Nursing Documentation: PMH: Agreed; PSxH: Agreed Nursing Documentation-PMH Past Medical History: No History, Except For Hx Hypertension: Yes Hx Asthma: Yes Hx Diabetes: Yes Hx Cancer: No Hx Gastrointestinal Problems: No Hx Neurological Problems: No - arthritis Review of Systems All Other Systems: negative except mentioned in HPI Physical Exam Vital Signs Date Time Temp Pulse Resp B/P (MAP) Pulse Ox O2 Delivery O2 Flow Rate FiO2 07/03/18 16:48 98.1 74 24 137/74 96 Room Air Sp02 EP Interpretation: reviewed, normal General Appearance: normal inspection, well appearing, no apparent distress, alert, GCS 15, Chronically Ill Head: atraumatic ENT: normal ENT inspection, hearing grossly normal, normal voice Neck: normal inspection, full range of motion, supple, no bony tend Respiratory: normal inspection, lungs clear, normal breath sounds, no respiratory distress, no retraction, no wheezing Cardiovascular #1: regular rate, rhythm, no edema Gastrointestinal: normal inspection, normal bowel sounds, non tender, soft, no guarding, no hernia Genitourinary: no CVA tenderness Musculoskeletal: normal inspection, back normal, normal range of motion Neurologic: normal inspection, alert, oriented x3, responsive, optical glass wet inspector III-XII nml as tested, speech normal Psychiatric: normal inspection, judgement/insight normal, mood/affect normal Skin: normal inspection, normal color, no rash Medical Decision Making Diagnostic Impression: Primary Impression: Bronchitis ER Course Patient presented for cough. Differential diagnosis included was not limited to bronchitis, pneumonia, THALIA inhibitor induced cough, pulmonary fibrosis among others.The patient was given breathing treatments. The patient was noted to have the normal oxygen saturation. The patient's cough and been ongoing for several weeks. The patient is given prescription for symptomatically treatment as well as the steroids. The patient is to return if she had worsening of condition. Last Vital Signs Date Time Temp Pulse Resp B/P (MAP) Pulse Ox O2 Delivery O2 Flow Rate FiO2 07/03/18 16:48 98.1 74 24 137/74 96 Room Air Status: improved Disposition: HOME, SELF-CARE Condition: Stable Scripts Guaifenesin/Codeine (Guaifenesin-Codeine Syrup) 5 Ml Liquid 5 ML ORAL Q4H PRN for For Cough, #118 ML Prov: Buddy Ray MD 07/03/18 Prednisone* (PREDNISONE*) 20 Mg Tablet 40 MG ORAL DAILY, #10 TAB Prov: Buddy Ray MD 07/03/18 Buddy Ray MD Jul 03, 2018 17:07
[2018-07-03] MEDS ORDERED: Promethazine/Codeine 5ml UD ORAL ONE (17:15)
[2018-07-03 17:16] VITALS: BP 156/68
[2018-07-03] MEDS ORDERED: Acetaminophen 500mg (ES) tab ORAL ONE (17:30)
[2018-07-03 19:07] VITALS: BP 149/82
[2018-07-03] MEDS ORDERED: ROBITUSSIN AC5 ML ORAL (19:32)
[2018-07-03] MEDS ORDERED: PREDNISONE20 MG ORAL (19:32)
[2018-07-03 19:46] VITALS: BP 151/81
--- NOTE | 2018-07-04 10:04 | Diagnostic Imaging Report ---
Indication: Headache Technique: Contiguous 5 mm thick transaxial imaging of the head obtained in a Siemens Sensation [address] scanner. Soft tissue and bone windows generated. Automatic Exposure Control was utilized. Total Dose length Product (DLP): 1330.[address] Dose Index Volume (CTDIvol): 70.38 mGy Comparison: none Findings: The size and configuration of the cortical sulci, basal cisterns, and ventricles are within normal limits for age. There is no mass effect, midline shift, or edema identified. There is no evidence of acute hemorrhage or abnormal intra-axial or extra-axial fluid collections. The bones and soft tissues are unremarkable. Impression: No mass effect, edema or acute bleed. The CT scanner at [facility] is accredited by the [employer] and the scans are performed using dose optimization techniques as appropriate to a performed exam including Automatic Exposure control.
--- NOTE | 2018-07-04 11:28 | Diagnostic Imaging Report ---
Indication: Chest pain Comparison: 12/30/2017 A single view chest radiograph was obtained. Findings: Interstitial opacities are present, nonspecific. The findings are probably chronic at least at the lung bases. No definite change appreciated. Heart size is within normal limits. Bones are osteopenic. IMPRESSION: Chronic disease
== END 2018-07-03 19:46 | disposition home or self-care (01) ==
LOC: EMR 17:25
DX: J40 Bronchitis, not specified as acute or chronic (principal); J45.909 Unspecified asthma, uncomplicated; R06.02 Shortness of breath; I10 Essential (primary) hypertension; E11.9 Type 2 diabetes mellitus without complications; Z88.0 Allergy status to penicillin; Z88.5 Allergy status to narcotic agent
CPT/HCPCS: 70450; 71045; 94640; 99284; J7512; J7620

== ENCOUNTER 2020-10-04 15:06 | Emergency (ER) | payer MEDICARE, MEDICAID ==
[~2020-10-04] VITALS: Ht 157.5 cm; Wt 68.0 kg
[~2020-10-04 15:06] MED LIST changes: +PREDNISONE20 MG ORAL; +ROBITUSSIN AC5 ML ORAL
--- NOTE | 2020-10-04 16:00 | NUR ---
ED Nurse Note: pt on continuous summer associate.
[2020-10-04] MEDS: Ketorolac 30mg Inj IV ONE (16:02)
--- NOTE | 2020-10-04 16:14 | Diagnostic Imaging Report ---
Indication: Chest pain Technique: One view of the chest Comparison: 07/03/2018 Findings: Reticular interstitial opacities at the left lung base and inferior right upper lobe appears similar to the prior exam. Pleural spaces are clear. The heart size is normal. Impression: Left basilar and inferior right upper lobe reticular opacities. Possibly representing acute infiltrates, but similar to the prior exam suggests that this represents chronic disease.
[2020-10-04 16:18] LABS: BASOPHILS % (AUTO) 1.4 % (0.0-2.0); EOSINOPHILS % (AUTO) 2.1 % (0.0-3.0); HEMOGLOBIN 12.4 G/DL (12.0-16.0); LYMPHOCYTES % (AUTO) 25.7 % (20.0-45.0); MEAN CORPUSCULAR VOLUME 88 FL (80-99); MONOCYTES % (AUTO) 7.5 % (1.0-10.0); NEUTROPHILS % (AUTO) 63.4 % (45.0-75.0); PLATELET COUNT 202 K/UL (150-450); RED BLOOD COUNT 4.41 M/UL (4.20-5.40); RED CELL DISTRIBUTION WIDTH 13.2 % (11.6-14.8); WHITE BLOOD COUNT 8.3 K/UL (4.8-10.8)
--- NOTE | 2020-10-04 16:21 | Emergency Room Report ---
History of Present Illness General Chief Complaint: Chest Pain Source: Patient, Medical Record Present Illness HPI Disclaimer: Please note that this report is being documented using [employer] technology. This can lead to erroneous entry secondary to incorrect interpretation by the dictating instrument. HPI: 70-year-old female history of hypertension, diabetes, COPD presents for left-sided chest pain radiating to the left arm. Pain is been present for 3 days. Associated with a cough. No fever. Mild shortness of breath. Mild nausea but no vomiting. Diarrhea. Pain is approximately 8 out of 10. Allergies: Coded Allergies: MORPHINE (Unverified Allergy, Severe, HIVES, SWELLING OF FACE, RASH, 10/06/14) AZITHROMYCIN (Verified Allergy, Unknown, Burning, 06/02/17) COVID-19 Screening Contact w/high risk pt: No Experienced COVID-19 symptoms?: No COVID-19 Testing performed COMPOSITOR APPRENTICE: No Patient History Reviewed Nursing Documentation: PMH: Agreed; PSxH: Agreed Nursing Documentation-PMH Past Medical History: No History, Except For Hx Hypertension: Yes Hx Asthma: Yes Hx Diabetes: Yes Hx Cancer: No Hx Gastrointestinal Problems: No Hx Neurological Problems: No - arthritis Review of Systems All Other Systems: negative except mentioned in HPI Physical Exam Vital Signs Date Time Temp Pulse Resp B/P (MAP) Pulse Ox O2 Delivery O2 Flow Rate FiO2 10/04/20 15:31 98.2 96 20 139/69 (92) 93 Room Air 10/04/20 15:48 98 Sp02 EP Interpretation: reviewed, normal General Appearance: well appearing, no apparent distress Head: normocephalic, atraumatic Eyes: bilateral eye PERRL, bilateral eye EOMI ENT: hearing grossly normal, moist mucus membranes Neck: full range of motion, supple Respiratory: lungs clear, normal breath sounds, no rhonchi, no respiratory distress, no retraction, no wheezing, other - Chest wall tender to palpation along left Cardiovascular #1: normal peripheral pulses, regular rate, rhythm, no murmur Gastrointestinal: non tender, soft, non-distended, no guarding Neurologic: alert, oriented x3, no focal defects Skin: normal color, warm/dry Medical Decision Making Diagnostic Impression: Primary Impression: Pneumonia ER Course MDM: Patient presented with cough, left-sided chest pain, mild shortness of breath. Differential included but not limited to pneumonia, COPD exacerbation, COVID-19 to name a few. Also the differential was musculoskeletal pain, chest wall strain, Clinical course-IV inserted laboratory studies were sent chest x-ray demonstrated evidence of a left-sided infiltrate. Patient was not hypoxic. Cough is minimally productive. Patient's chest pain was reproducible on my exam. EKG did not demonstrate any obvious ischemic changes. Laboratory studies demonstrated negative troponin. Again chest x-ray findings were consistent with left-sided infiltrate. These changes were also noted on previous films but due to her presentation with left-sided chest pain and cough I do suspect she does have some pneumonia. According to the family she had a negative Covid test recently. She was afebrile. Due to her age, comorbidities with findings of pneumonia I did offer admission to the patient however the patient did not wish to stay in the hospital. She wished to be discharged home and will trial p.o. antibiotics and pain control. She does have follow-up with her primary care doctor and pulmonology. I did recommend strict return precautions to the patient. She will be discharged with p.o. Levaquin and tramadol as needed for pain. She has taken these medications in the past. I do believe that her chest pain is less likely ACS and more likely secondary to infectious process with coughing. Labs - Laboratory Tests Test 10/04/20 15:43 White Blood Count 8.3 K/UL (4.8-10.8) Red Blood Count 4.41 M/UL (4.20-5.40) Hemoglobin 12.4 G/DL (12.0-16.0) Hematocrit 39.0 % (37.0-47.0) Mean Corpuscular Volume 88 FL (80-99) Mean Corpuscular Hemoglobin 28.1 PG (27.0-31.0) Mean Corpuscular Hemoglobin Concent 31.8 G/DL (32.0-36.0) L Red Cell Distribution Width 13.2 % (11.6-14.8) Platelet Count 202 K/UL (150-450) Mean Platelet Volume 9.7 FL (6.5-10.1) Neutrophils (%) (Auto) 63.4 % (45.0-75.0) Lymphocytes (%) (Auto) 25.7 % (20.0-45.0) Monocytes (%) (Auto) 7.5 % (1.0-10.0) Eosinophils (%) (Auto) 2.1 % (0.0-3.0) Basophils (%) (Auto) 1.4 % (0.0-2.0) Sodium Level 141 MMOL/L (136-145) Potassium Level 5.0 MMOL/L (3.5-5.1) Chloride Level 105 MMOL/L (98-107) Carbon Dioxide Level 28 MMOL/L (21-32) Anion Gap 8 mmol/L (5-15) Blood Urea Nitrogen 9 mg/dL (7-18) Creatinine 1.0 MG/DL (0.55-1.30) Estimated Glomerular Filtration Rate 54.5 mL/min (>60) Glucose Level 324 MG/DL (74-106) H Calcium Level 9.0 MG/DL (8.5-10.1) Total Bilirubin 0.3 MG/DL (0.2-1.0) Aspartate Amino Transferase (AST) 14 U/L (15-37) L Alanine Aminotransferase (ALT) 17 U/L (12-78) Alkaline Phosphatase 87 U/L (46-116) Troponin I 0.000 ng/mL (0.000-0.056) Pro-B-Type Natriuretic Peptide 155 pg/mL (0-125) H Total Protein 7.8 G/DL (6.4-8.2) Albumin 3.7 G/DL (3.4-5.0) Globulin 4.1 g/dL Albumin/Globulin Ratio 0.9 (1.0-2.7) L On reevaluation: Patient in no respiratory distress Plan-discharge, follow-up PMD, p.o. antibiotics and pain control EKG Diagnostic Results Rate: normal Rhythm: NSR, other - With sinus arrhythmia ST Segments: no acute changes Other Impression Left axis deviation Last Vital Signs Date Time Temp Pulse Resp B/P (MAP) Pulse Ox O2 Delivery O2 Flow Rate FiO2 10/04/20 15:48 98 38 Room Air 98 10/04/20 15:31 98.2 139/69 (92) 93 Status: improved Disposition: HOME, SELF-CARE Condition: Stable Scripts Levofloxacin* (LEVOFLOXACIN*) 750 Mg Tablet 750 MG ORAL DAILY, #10 TAB Prov: Anmol Bland M.D. 10/04/20 Tramadol Hcl* (ULTRAM*) 50 Mg Tablet 50 MG ORAL Q6H PRN for For Pain, #30 TAB 0 Refills Prov: Anmol Bland M.D. 10/04/20 Anmol Bland M.D. Oct 04, 2020 16:21
[2020-10-04 16:40] LABS: ALBUMIN 3.7 G/DL (3.4-5.0); ALBUMIN/GLOBULIN RATIO 0.9 (1.0-2.7); BILIRUBIN,TOTAL 0.3 MG/DL (0.2-1.0)
--- NOTE | 2020-10-04 16:45 | NUR ---
ED Nurse Note: pt glucose 324. MD notified. verbalizes for pt to be dsicharged and take medications for correction at home.
[2020-10-04] MEDS ORDERED: LEVOFLOXACIN750 MG ORAL (16:50)
[2020-10-04] MEDS ORDERED: TRAMADOL HCL50 MG ORAL (16:50)
--- NOTE | 2020-10-04 17:15 | NUR ---
ER DISCHARGE NOTE: Patient is cleared to be discharged per ERMD, pt is aox4, on room air, with stable vital signs. pt was given dc and prescription instructions, pt was able to verbalize understanding, pt id band and iv site removed without complications. pt is able to ambulate with steady gait. pt took all belongings. pt verbalizes to followup with PMD and take medication to cover blood sugar.
[2020-10-04 17:24] VITALS: BP 118/84
[2020-10-04 17:25] VITALS: BP 118/84
== END 2020-10-04 17:30 | disposition home or self-care (01) ==
LOC: EMR 16:35
DX: J18.9 Pneumonia, unspecified organism (principal); I10 Essential (primary) hypertension; J45.909 Unspecified asthma, uncomplicated; J44.9 Chronic obstructive pulmonary disease, unspecified; E11.9 Type 2 diabetes mellitus without complications; Z79.4 Long term (current) use of insulin; Z88.5 Allergy status to narcotic agent; Z88.1 Allergy status to other antibiotic agents
CPT/HCPCS: 36415; 71045; 80053; 83880; 84484; 85025; 93005; 96374; 99284; J1885